=== PATIENT | female | born 1950 | race Caucasian/White ===

== ENCOUNTER 2020-03-12 07:19 | Outpatient (REF) | payer MEDICARE, SELFPAY ==
[2020-03-12 09:33] LABS: Alanine Aminotransferase 17 U/L (0-31); Albumin Level 4.1 g/dL (3.5-5.0); Alkaline Phosphatase 67 U/L (39-117); Anion Gap 15 (12-20); Aspartate Amino Transferase 21 U/L (5-31); Bilirubin Total 0.8 mg/dL (0.0-1.0); Blood Urea Nitrogen 14 mg/dL (9-16); Calcium 9.2 mg/dL (8.4-10.2); Carbon Dioxide 28 mmol/L (22-29); Chloride 103 mmol/L (96-108); Cholesterol 168 mg/dL; Estimated Glomerular Filt Rate > 60; Glucose Fasting 88 mg/dL (60-99); HDL Cholesterol 64 mg/dL; LDL Cholesterol Calculated 93 mg/dl; Potassium 5.5 mmol/l (3.3-5.1); Sodium 140 mmol/L (135-145); Total Protein 7.1 g/dL (6.5-8.0); Triglycerides 59 mg/dL
[2020-03-12 09:58] LABS: TSH reflex Free T4 3.05 mIU/mL (0.32-4.0)
== END 2020-03-12 07:20 | disposition home or self-care (01) ==
LOC: HO.LAB 07:19
PROVIDERS: PCP Internal Medicine; Visit Provider Internal Medicine
DX: E78.00 Pure hypercholesterolemia, unspecified (principal)
CPT/HCPCS: 36415; 80053; 80061; 84443

== ENCOUNTER 2020-10-15 07:16 | Outpatient (REF) | payer MEDICARE, SELFPAY ==
[2020-10-15 07:56] LABS: MANUAL DIFF FLAG NO
[2020-10-15 07:59] LABS: Basophils Absolute Auto 0.1 X10*3/uL (0.0-0.2); Basophils Percent Auto 0.9 % (0-2); Eosinophils Absolute Auto 0.2 X10*3/uL (0.0-0.4); Hematocrit 43.4 % (37-47); Hemoglobin 13.8 g/dl (12.0-16.0); Imm Gran Abs Auto 0.01 X10*3/uL (0.00-0.03); Imm Gran Pct Auto 0.2 % (0.0-0.4); Lymphocytes Absolute Auto 1.8 X10*3/uL (1.2-4.9); Lymphocytes Percent Auto 32.2 % (20-40); Mean Corpuscular HGB Conc 31.8 g/dl (31.0-35.0); Mean Corpuscular Hemoglobin 29.9 pg (27.0-33.0); Mean Corpuscular Volume 94.1 fL (80-98); Mean Platelet Volume 10.6 fL (9.4-12.3); Monocytes Absolute Auto 0.5 X10*3/uL (0.1-1.2); Monocytes Percent Auto 8.3 % (2-11); Neutrophils Absolute Auto 3.1 X10*3/uL (2.0-8.3); Neutrophils Percent Auto 55.4 % (45-73); Platelet Count 271 X10*3/uL (160-400); Red Blood Count 4.61 X10*6/uL (4.20-5.50); Red Cell Distribution Width 12.7 % (11.0-16.0); White Blood Count 5.7 X10*3/uL (4.8-10.8)
[2020-10-15 08:22] LABS: Alanine Aminotransferase 14 U/L (0-31); Albumin Level 4.1 g/dL (3.5-5.0); Alkaline Phosphatase 65 U/L (39-117); Anion Gap 10 (12-20); Aspartate Amino Transferase 18 U/L (5-31); Bilirubin Total 0.9 mg/dL (0.0-1.0); Blood Urea Nitrogen 14 mg/dL (9-16); Calcium 9.3 mg/dL (8.4-10.2); Carbon Dioxide 31 mmol/L (22-29); Chloride 105 mmol/L (96-108); Cholesterol 162 mg/dL; Estimated Glomerular Filt Rate > 60; Glucose Fasting 88 mg/dL (60-99); HDL Cholesterol 67 mg/dL; LDL Cholesterol Calculated 86 mg/dl; Potassium 4.1 mmol/L (3.3-5.1); Sodium 142 mmol/L (135-145); Triglycerides 46 mg/dL
[2020-10-15 08:46] LABS: TSH reflex Free T4 2.28 uIU/mL (0.32-4.0); Vitamin D 25-OH Total 45.6 ng/mL (>30)
[2020-10-15 10:03] LABS: Glucose Urine UA NEG (NEG); Leukocyte Esterase Urine 1+ (NEG); Nitrite Urine NEG (NEG); PH 6.5 (5.0-8.0); Specific Gravity - Urine <= 1.005 (1.005-1.025); UACC Culture Trigger YES; Urine Blood NEG (NEG); Urine Ketones NEG (NEG); Urine Protein NEG (NEG-TRACE)
[2020-10-15 10:06] LABS: Appearance Urine CLEAR; Color Urine YELLOW
[2020-10-15 10:50] LABS: RBC Urine 0 /HPF (0); Squamous Epithelial Cell Urine 1+ /LPF
== END 2020-10-15 07:17 | disposition home or self-care (01) ==
LOC: HO.LAB 07:16
PROVIDERS: PCP Internal Medicine; Visit Provider Internal Medicine
DX: E87.5 Hyperkalemia (principal); M81.0 Age-related osteoporosis without current pathological fracture; E78.00 Pure hypercholesterolemia, unspecified; R63.6 Underweight; E55.9 Vitamin D deficiency, unspecified
CPT/HCPCS: 36415; 80053; 80061; 81001; 81003; 82306; 84443; 85025; 87086

== ENCOUNTER 2020-10-22 07:09 | Outpatient (REF) | payer MEDICARE, SELFPAY ==
--- NOTE | ~2020-10-22 | XR_ITS ---
EXAMINATION: XR CERVICAL SPINE CLINICAL INFORMATION: Straightening of muscle, fascia and tendon COMPARISON: None TECHNIQUE: 3 views of the cervical spine were obtained. FINDINGS: There is normal cervical lordosis. The vertebral heights are normal. There is grade 1 anterolisthesis C3 over C4. Mild loss of C5-C6 disc height is noted with minimal posterior spondylosis. No visible acute fracture, dislocation or lytic process seen. The soft tissues are normal. XR/XR cervical spine 3V IMPRESSION: Degenerative disc changes C5-C6 disc level. No visible acute fracture or dislocation seen. Grade 1 anterolisthesis C3 over C4.
--- NOTE | ~2020-10-22 | XR_ITS ---
EXAMINATION: XR SHOULDER, LEFT CLINICAL INFORMATION: Strain COMPARISON: None TECHNIQUE: AP external rotation, Grashey, scapular Y, and axillary views of the left shoulder. FINDINGS: The bones and soft tissues are normal. No fracture. Glenohumeral and acromioclavicular alignment is anatomic with normal joint space. No abnormal soft tissue calcifications. XR/XR shoulder LT min 2V IMPRESSION: Normal left shoulder.
== END 2020-10-22 07:10 | disposition home or self-care (01) ==
LOC: HO.XRAY 07:09
PROVIDERS: PCP Internal Medicine; Visit Provider Internal Medicine
DX: M25.512 Pain in left shoulder (principal); M54.2 Cervicalgia; S16.1XXD Strain of muscle, fascia and tendon at neck level, subsequent encounter
CPT/HCPCS: 72040; 73030

== ENCOUNTER 2020-11-23 08:51 | Outpatient (REF) | payer MEDICARE, SELFPAY ==
--- NOTE | ~2020-11-23 | MM_ITS ---
EXAMINATION: BONE DENSITOMETRY CLINICAL INDICATION: Osteoporosis. COMPARISON: Previous BD dated 05/09/2017 and baseline BD dated 04/22/2015. TECHNIQUE: Using a [employer] DXA System (software version: 13.1) manufactured by [employer], dual-energy x-ray absorptiometry was performed of the lumbar spine and left hip. The images are of good technical quality. Summary results are attached. FINDINGS: AP SPINE L1-L4: Current: BMD 0.784 g/cm2, Z-score -1.1, T-score -3.3, osteoporosis, 0.5% increase from previous, 1.8% decrease from baseline (<5% change is not significant). Prior: BMD 0.780 g/cm2. Baseline: BMD 0.798 g/cm2. LEFT FEMUR, NECK: Current: BMD 0.629 g/cm2, Z-score -0.9, T-score -2.9, osteoporosis. Prior: BMD 0.614 g/cm2. Baseline: BMD 0.682 g/cm2. LEFT FEMUR, TOTAL: Current: BMD 0.617 g/cm2, Z-score -1.3, T-score -3.1, osteoporosis, 1.6% decrease from previous, 8.6% decrease from baseline (<5% change is not significant). Prior: BMD 0.627 g/cm2. Baseline: BMD 0.675 g/cm2. IDENTIFIED RISK FACTORS: Menopause, low body weight, height loss, osteoporosis. HISTORY OF FRACTURE: None listed. MEDICATIONS: Calcium, vitamin D, bisphosphonate. MM/XR DEXA axial skeleton IMPRESSION: 1. DIAGNOSIS: Osteoporosis based on the lowest T-score value of -3.3 in the lumbar spine applying World Health Organization criteria. 2. 10-YEAR FRACTURE RISK PREDICTION, FRAX: Major osteoporotic fracture (clinical spine, forearm, hip or shoulder) 15.2%. Hip fracture 5.1%. 3. Treatment Recommendations: NOF guidelines recommend consideration for treatment in postmenopausal women and men age 50 and older presenting with the following: -A hip or vertebral (clinical or morphometric) fracture. -T-score less than or equal to -2.5 at the femoral neck or spine after appropriate evaluation to exclude secondary causes. -Low bone mass at the hip or spine and a 10-year fracture probability by FRAX of greater than or equal to 3% for hip fracture or greater than or equal to 20% for major osteoporotic fracture based on the [place] adapted WHO algorithm. 4. Other Recommendations: All treatment decisions require clinical judgment and consideration of individual patient factors, including patient preferences, comorbidities, previous drug use, risk factors not captured in the FRAX model (e.g. frailty, falls, vitamin D deficiency, increased bone turnover, interval significant decline in bone density) and possible under or overestimation of fracture risk by FRAX. Additional medical evaluation for secondary cause of low bone mineral density may be appropriate. FUTURE SCAN RECOMMENDATION: People with diagnosed cases of osteoporosis or at high risk for fracture should have regular bone mineral density tests. For patients eligible for Medicare, routine testing is allowed once every 2 years. The testing frequency can be increased to one year for patients who have rapidly progressing disease, those who are receiving or discontinuing medical therapy to restore bone mass, or have additional risk factors.
== END 2020-11-23 08:52 | disposition home or self-care (01) ==
LOC: HO.MAMMO 08:51
PROVIDERS: Visit Provider Internal Medicine
DX: M81.0 Age-related osteoporosis without current pathological fracture (principal); Z78.0 Asymptomatic menopausal state
CPT/HCPCS: 77080

== ENCOUNTER 2021-04-15 07:29 | Outpatient (REF) | payer MEDICARE, SELFPAY ==
[2021-04-15 07:37] LABS: MANUAL DIFF FLAG NO
[2021-04-15 08:41] LABS: Basophils Percent Auto 0.6 % (0-2); Eosinophils Absolute Auto 0.2 X10*3/uL (0.0-0.4); Eosinophils Percent Auto 3.3 % (0-4); Hematocrit 43.5 % (37.0-47.0); Hemoglobin 13.8 g/dl (12.0-16.0); Imm Gran Abs Auto 0.01 X10*3/uL (0.00-0.03); Imm Gran Pct Auto 0.2 % (0.0-0.4); Lymphocytes Percent Auto 31.6 % (20-40); Mean Corpuscular HGB Conc 31.7 g/dl (31.0-35.0); Mean Corpuscular Volume 94.6 fL (80.0-98.0); Monocytes Absolute Auto 0.6 X10*3/uL (0.1-1.2); Monocytes Percent Auto 8.8 % (2-11); Neutrophils Absolute Auto 3.5 x10*3/uL (2.0-8.3); Neutrophils Percent Auto 55.5 % (45-73); Platelet Count 292 X10*3/uL (160-400); Red Cell Distribution Width 12.6 % (11.0-16.0); White Blood Count 6.4 X10*3/uL (4.8-10.8)
[2021-04-15 09:03] LABS: Alanine Aminotransferase 14 U/L (0-31); Albumin Level 3.9 g/dL (3.5-5.0); Alkaline Phosphatase 64 U/L (39-117); Anion Gap 11 (12-20); Aspartate Amino Transferase 20 U/L (5-31); Blood Urea Nitrogen 15 mg/dL (9-16); Calcium 9.3 mg/dL (8.4-10.2); Carbon Dioxide 30 mmol/L (22-29); Chloride 104 mmol/L (96-108); Cholesterol 159 mg/dL; Estimated Glomerular Filt Rate > 60; Glucose Fasting 84 mg/dL (60-99); HDL Cholesterol 64 mg/dL; LDL Cholesterol Calculated 85 mg/dl; Potassium 4.3 mmol/L (3.3-5.1); Sodium 141 mmol/L (135-145); Total Protein 6.8 g/dL (6.5-8.0); Triglycerides 51 mg/dL
[2021-04-15 09:28] LABS: TSH reflex Free T4 2.21 uIU/mL (0.32-4.0)
== END 2021-04-15 07:30 | disposition home or self-care (01) ==
LOC: HO.LAB 07:29
PROVIDERS: PCP Internal Medicine; Visit Provider Internal Medicine
DX: E78.00 Pure hypercholesterolemia, unspecified (principal); I10 Essential (primary) hypertension
CPT/HCPCS: 36415; 80053; 80061; 84443; 85025

== ENCOUNTER 2021-10-14 06:57 | Outpatient (REF) | payer MEDICARE, SELFPAY ==
[2021-10-14 09:19] LABS: Appearance Urine Clear; Color Urine Yellow; Glucose Urine UA Negative (Negative); Leukocyte Esterase Urine Moderate (2+) (Negative); Nitrite Urine Negative (Negative); PH 7.5 (5.0-8.0); Specific Gravity - Urine 1.015 (1.005-1.025); Urine Blood Negative (Negative); Urine Ketones Negative (Negative); Urine Protein Negative (Neg-Trace)
[2021-10-14 09:24] LABS: Bacteria Urine None Seen (None Seen); Hyaline Casts Urine 0-2 /LPF (0-2); RBC Urine 0-2 /HPF (0-2); Squamous Epithelial Cell Urine 0-2 /HPF (0-2); UACC Culture Trigger YES
== END 2021-10-14 06:58 | disposition home or self-care (01) ==
LOC: HO.LAB 06:57
PROVIDERS: PCP Internal Medicine; Visit Provider Internal Medicine
DX: E87.5 Hyperkalemia (principal)
CPT/HCPCS: 81001; 87086

== ENCOUNTER 2021-10-21 07:08 | Outpatient (REF) | payer MEDICARE, SELFPAY ==
[2021-10-21 08:42] LABS: Anion Gap 14 (12-20); Blood Urea Nitrogen 17 mg/dL (9-16); Calcium 9.3 mg/dL (8.4-10.2); Carbon Dioxide 29 mmol/L (22-29); Chloride 103 mmol/L (96-108); Cholesterol 178 mg/dL; Estimated Glomerular Filt Rate > 60; Glucose Fasting 85 mg/dL (60-99); HDL Cholesterol 70 mg/dL; LDL Cholesterol Calculated 97 mg/dl; Potassium 4.6 mmol/L (3.3-5.1); Sodium 141 mmol/L (135-145); Triglycerides 56 mg/dL
== END 2021-10-21 07:09 | disposition home or self-care (01) ==
LOC: HO.LAB 07:08
PROVIDERS: PCP Internal Medicine; Visit Provider Nurse Practitioner Family
DX: E78.00 Pure hypercholesterolemia, unspecified (principal); Z13.1 Encounter for screening for diabetes mellitus
CPT/HCPCS: 36415; 80048; 80061

== ENCOUNTER 2022-04-28 07:14 | Outpatient (REF) | payer MEDICARE, SELFPAY ==
[2022-04-28 07:32] LABS: MANUAL DIFF FLAG NO
[2022-04-28 07:58] LABS: Basophils Absolute Auto 0.1 X10*3/uL (0.0-0.2); Basophils Percent Auto 1.1 % (0-2); Eosinophils Absolute Auto 0.2 X10*3/uL (0.0-0.4); Hemoglobin 13.9 g/dl (12.0-16.0); Imm Gran Abs Auto 0.01 X10*3/uL (0.00-0.03); Imm Gran Pct Auto 0.2 % (0.0-0.4); Lymphocytes Absolute Auto 2.3 X10*3/uL (1.2-4.9); Mean Corpuscular HGB Conc 32.3 g/dl (31.0-35.0); Mean Corpuscular Hemoglobin 30.3 pg (27.0-33.0); Mean Corpuscular Volume 93.9 fL (80.0-98.0); Mean Platelet Volume 10.8 fL (9.4-12.3); Monocytes Absolute Auto 0.5 X10*3/uL (0.1-1.2); Monocytes Percent Auto 7.8 % (2-11); Neutrophils Absolute Auto 3.4 x10*3/uL (2.0-8.3); Neutrophils Percent Auto 52.9 % (45-73); Platelet Count 274 X10*3/uL (160-400); Red Blood Count 4.58 X10*6/uL (4.20-5.50); Red Cell Distribution Width 12.7 % (11.0-16.0); White Blood Count 6.4 X10*3/uL (4.8-10.8)
[2022-04-28 08:18] LABS: Appearance Urine Cloudy; Color Urine Yellow; Glucose Urine UA Negative (Negative); Leukocyte Esterase Urine Moderate (2+) (Negative); Nitrite Urine Negative (Negative); PH 8.5 (5.0-9.0); Specific Gravity - Urine 1.015 (1.005-1.025); UMIC TRIGGER UACC YES; Urine Blood Negative (Negative); Urine Ketones Negative (Negative); Urine Protein Negative (Neg-Trace)
[2022-04-28 08:34] LABS: Bacteria Urine None Seen (None Seen); Hyaline Casts Urine 0-2 /LPF (0-2); RBC Urine 0-2 /HPF (0-2); Squamous Epithelial Cell Urine 0-2 /HPF (0-2); WBC Urine 0-5 /HPF (0-5)
[2022-04-28 08:55] LABS: Alanine Aminotransferase 17 U/L (0-31); Albumin Level 3.9 g/dL (3.5-5.0); Alkaline Phosphatase 72 U/L (39-117); Anion Gap 11 (12-20); Aspartate Amino Transferase 22 U/L (5-31); Bilirubin Total 0.8 mg/dL (0.0-1.0); Blood Urea Nitrogen 16 mg/dL (9-16); Calcium 8.9 mg/dL (8.4-10.2); Carbon Dioxide 28 mmol/L (22-29); Chloride 105 mmol/L (96-108); Cholesterol 167 mg/dL; Estimated Glomerular Filt Rate > 60; Glucose Fasting 86 mg/dL (60-99); HDL Cholesterol 65 mg/dL; LDL Cholesterol Calculated 93 mg/dl; Potassium 4.3 mmol/L (3.3-5.1); Sodium 140 mmol/L (135-145); Total Protein 6.6 g/dL (6.5-8.0); Triglycerides 45 mg/dL
[2022-04-28 09:15] LABS: TSH reflex Free T4 2.33 uIU/mL (0.32-4.0)
[2022-04-28 09:58] LABS: Vitamin D 25-OH Total 39.8 ng/mL (>30)
== END 2022-04-28 07:15 | disposition home or self-care (01) ==
LOC: HO.LAB 07:14
PROVIDERS: PCP Internal Medicine; Visit Provider Internal Medicine
DX: M81.0 Age-related osteoporosis without current pathological fracture (principal); E55.9 Vitamin D deficiency, unspecified; E78.00 Pure hypercholesterolemia, unspecified
CPT/HCPCS: 36415; 80053; 80061; 81001; 82306; 84443; 85025

== ENCOUNTER 2022-12-01 07:12 | Outpatient (REF) | payer MEDICARE, SELFPAY ==
[2022-12-01 07:55] LABS: MANUAL DIFF FLAG NO
[2022-12-01 07:59] LABS: Basophils Absolute Auto 0.1 X10*3/uL (0.0-0.2); Basophils Percent Auto 0.7 % (0-2); Eosinophils Absolute Auto 0.2 X10*3/uL (0.0-0.4); Eosinophils Percent Auto 2.6 % (0-4); Hematocrit 44.6 % (37.0-47.0); Hemoglobin 14.6 g/dl (12.0-16.0); Imm Gran Abs Auto 0.02 X10*3/uL (0.00-0.03); Imm Gran Pct Auto 0.3 % (0.0-0.4); Lymphocytes Absolute Auto 2.1 X10*3/uL (1.2-4.9); Lymphocytes Percent Auto 29.6 % (20-40); Mean Corpuscular HGB Conc 32.7 g/dl (31.0-35.0); Mean Corpuscular Hemoglobin 30.5 pg (27.0-33.0); Mean Corpuscular Volume 93.3 fL (80.0-98.0); Mean Platelet Volume 9.9 fL (9.4-12.3); Monocytes Absolute Auto 0.6 X10*3/uL (0.1-1.2); Monocytes Percent Auto 9.1 % (2-11); Neutrophils Percent Auto 57.7 % (45-73); Platelet Count 319 X10*3/uL (160-400); Red Blood Count 4.78 X10*6/uL (4.20-5.50); Red Cell Distribution Width 12.7 % (11.0-16.0)
[2022-12-01 08:46] LABS: Alanine Aminotransferase 16 U/L (0-31); Alkaline Phosphatase 86 U/L (39-117); Anion Gap 14 (12-20); Aspartate Amino Transferase 20 U/L (5-31); Bilirubin Total 0.7 mg/dL (0.0-1.0); Blood Urea Nitrogen 12 mg/dL (9-16); Calcium 9.9 mg/dL (8.4-10.2); Carbon Dioxide 28 mmol/L (22-29); Chloride 106 mmol/L (96-108); Cholesterol 174 mg/dL (<200); Estimated Glomerular Filt Rate > 60; Glucose Fasting 89 mg/dL (60-99); HDL Cholesterol 64 mg/dL (>40); LDL Cholesterol Calculated 98 mg/dL (<100); Potassium 5.5 mmol/L (3.3-5.1); Sodium 142 mmol/L (135-145); Total Protein 7.5 g/dL (6.5-8.0); Triglycerides 60 mg/dL (<150)
[2022-12-01 09:01] LABS: TSH reflex Free T4 1.77 uIU/mL (0.32-4.0); Vitamin D 25-OH Total 60.6 ng/mL (>30)
[2022-12-01 10:23] LABS: Appearance Urine Clear; Color Urine Yellow; Glucose Urine UA Negative (Negative); Leukocyte Esterase Urine Small (1+) (Negative); Nitrite Urine Negative (Negative); PH 6.5 (5.0-9.0); Specific Gravity - Urine 1.015 (1.005-1.025); UMIC TRIGGER UACC YES; Urine Blood Negative (Negative); Urine Ketones Negative (Negative); Urine Protein Negative (Neg-Trace)
[2022-12-01 10:40] LABS: Bacteria Urine None Seen (None Seen); Hyaline Casts Urine 0-2 /LPF (0-2); RBC Urine 0-2 /HPF (0-2); Squamous Epithelial Cell Urine 0-2 /HPF (0-2); UACC Culture Trigger YES; WBC Urine 0-5 /HPF (0-5)
[2022-12-03 23:07] LABS: Lyme Abs Screen <0.90 index
== END 2022-12-01 07:13 | disposition home or self-care (01) ==
LOC: HO.LAB 07:12
PROVIDERS: PCP Internal Medicine; Visit Provider Internal Medicine
DX: M25.50 Pain in unspecified joint (principal); I10 Essential (primary) hypertension; E55.9 Vitamin D deficiency, unspecified; E78.00 Pure hypercholesterolemia, unspecified; R30.0 Dysuria
CPT/HCPCS: 36415; 80053; 80061; 81001; 81003; 82306; 84443; 85025; 86617; 86618; 87086

== ENCOUNTER 2022-12-05 10:56 | Outpatient (AMB) | payer MEDICARE, SELFPAY ==
[2022-12-05 10:58] VITALS: BP 124/68; PULSE 59; O2SAT 99; BMI 18.2
--- NOTE | 2022-12-05 10:58 | AM.OFFVISMDC ---
Intake Vital Signs 12/05/22 10:58 Height 5 ft 6 in Weight 113 lb 0.2 oz BMI 18.2 BP 124/68 Blood Pressure Location Lt brachial Position Sitting Pulse 59 Pulse Source Pulse Oximeter Temp Source Skin Pulse Oximetry (%) 99 Oxygen Delivery Method Room Air Intake Visit Reasons: SAWV Allergies No Known Allergies [No Known Allergies*] Allergy (Verified 12/05/22 11:20) Medication List - Last Reconciled 12/05/22 by LASHON Harris alendronate 70 mg PO QWEEK 90 days atorvastatin 10 mg PO DAILY zolpidem 5 mg PO BEDTIME PRN 90 days Fall Risk Assessment Fall risk assessment: No Falls in past year Date Fall Risk Assessed: 12/05/22 HPI SAWV HPI Details Patient is a 72-year-old female who presents today for subsequent wellness visit. Patient of Dr. Boudreaux. Today we discussed patient's need for pneumonia vaccine, tetanus vaccine, and bone density screening. Patient has declined pneumonia and tetanus vaccines. Mammogram normal 01/2022. Patient did have normal Pap smear 10/2020 at [facility] and she has an upcoming appointment with gynecology next week. Colonoscopy in 2019 which was negative and repeat in [address] Marin. [place] of care was reviewed with the patient and she was provided with a screening schedule. End of life planning was discussed with the patient and she was provided with healthcare proxy and MOLST forms. [facility] Medical History Cervical myofascial strain Underweight Hyperkalemia Insomnia Osteoporosis Pure hypercholesterolemia Surgical History History of colonoscopy Family History Father Medical history unknown Mother Medical history unknown Son In good health Son In good health Social History Housing: House Alcohol intake: never Patient Tobacco Use Status: Never used Tobacco e-Cigarette/Vaping Use: Never Used Second Hand Smoke Exposure: No service: No Current occupational status: retired Cognitive needs: No Hearing needs: No Vision needs: Yes Questionnaire Medicare Wellness Checkup What [age] 65-71 What gender do you identify with?: female During the past 4 weeks, how much have you been bothered by emotional problems such as feeling anxious, depressed, irritable, sad or downhearted, and blue?: not at all During the past 4 weeks, has your physical & emotional health limited your social activities with family, friends, neighbors, or groups?: not at all During the past 4 weeks, how much bodily pain have you generally had?: mild pain During the past 4 weeks, was someone available to help you if you needed & wanted help?: yes, as much as I wanted During the past 4 weeks, what was the hardest physical activity you could do for at least 2 minutes?: moderate Can you get to places out of walking distance without help? (For eg., can you travel alone on buses, taxis or drive your car?): Yes Can you go shopping for groceries or clothes without someone's help?: Yes Can you prepare your own meals?: Yes Can you do your housework without help?: Yes Because of any health problems, do you need the help of another person with your personal care needs such as eating, bathing, dressing or getting around the house?: No Can you handle your own money without help?: No During the past 4 weeks, how would you rate your health in general?: very good During the past 4 weeks how have things been going for you?: pretty well Are you having difficulties driving your car?: no Do you always fasten your seat belt when you are in a car?: yes, usually During past 4 weeks, have you been bothered by the following: never: Falling or dizzy when standing up, Sexual problems?, Trouble eating well?, Teeth or denture problems? and Problems using the telephone? and sometimes: Tiredness or fatigue? Have you fallen 2 or more times in the past year?: No Are you afraid of falling?: No Are you a smoker?: no During the past 4 weeks, how many drinks of wine, beer, or other alcoholic beverages did you have?: no alcohol at all Do you exercise for about 20 minutes 3 or more times a week?: no, I usually do not exercise this much Have you been given information to help with the following?: no: Hazards in your house that might hurt you? and no: Keeping track of your medications? How often do you have trouble taking medicines the way you have been told to take them?: I always take medicine as prescribed How confident are you that you can control & manage most of your health problems?: very confident What is your race?: White Mini Mental State Exam (MMSE) Orientation What is the (year) (season) (date) (day) (month)?: year, season, date, day and month Score Score: 5 Activity of Daily Living Bathing - sponge bath, tub bath or shower: receives no assistance (gets in/out by self, if usual bathing means Dressing - getting clothes from closets & drawers, including inner/outer garments & fasteners.: gets clothes & gets completely dressed without help Toileting - going to the 'toilet room' for urine/bowel elimination & cleaning self/arranging clothes: goes to toilet room, cleans self, arranges clothes without help Transfer: moves in & out of bed and chair without help (may use support object) Continence: controls urination/bowel movements completely by self Feeding: feeds self without help Total Score: 0 Information obtained from: patient Using telephone: independent Traveling: independent Shopping: independent Preparing meals: independent Housework: independent Taking medicine: independent Managing money: independent PHQ-9 Over the last 2 weeks, how often have you been bothered by any of the following problems? 1. Little interest or pleasure in doing things: not at all 2. Feeling down, depressed, or hopeless: not at all 3. Trouble falling or staying asleep, or sleeping too much: several days 4. Feeling tired or having little energy: several days 5. Poor appetite or overeating: not at all 6. Feeling bad about yourself - or that you are a failure or have let yourself or your family down: not at all 7. Trouble concentrating on things, such as reading the newspaper or watching television: not at all 8. Moving or speaking so slowly that other people could have noticed. Or the opposite - being so fidgety or restless that you have been moving around a lot more than usual: not at all 9. Thoughts that you would be better off or of hurting yourself in some way: not at all Total score: 2 Depression Screening Interpretation: Negative Depression Screening Done: Yes 05739 - PHQ-9 Billing: Yes Source: Developed by Drs. Daniel Botello, Wade Bermudez and colleagues, with an educational delvin from [employer]. ANTON-7 AMB Questionnaire ANTON-7 Date ANTON - 7 assessed: 04/30/22 Feeling nervous, anxious, or on edge: 0 = Not at all Not being able to stop or control worryin = Not at all Worrying too much about different things: 0 = Not at all Trouble relaxin = Not at all Being so restless that it is hard to sit still: 0 = Not at all Becoming easily annoyed or irritable: 0 = Not at all Feeling afraid as if something awful might happen: 0 = Not at all Total ANTON-7 score (0-4 normal; 5-9 mild; 10-14 moderate; 15-21 severe): 0 Source: Developed by Drs. Daniel Btoello, Wade Bermudez and colleagues, with an educational delvin from [employer]. ANTON-7 Assessment Billing ANTON-7 Assessment Tool: ANTON-7 Assessment 52085 AUDIT C Alcohol Use Questionnaire (AUDIT-C) 1. How often do you have a drink containing alcohol?: Never 3. How often do you have six or more drinks on one occasion?: Never Total Score: 0 Score Reviewed/Action Taken: No Thrive Questionnaire Date Thrive assessed: 12/05/22 I am a: Patient What is your living situation today?: I have a steady place to live Within the past 12 months, did the food you bought not last and you didn't have the money to get more?: Never true Within the past 12 months, did you worry whether your food would run out before you got money to buy more?: Never true Currently or been in a relationship where the following occur: no concerns reported Physical Exam Vital Signs: Last Vital Signs Pulse 59 12/05/22 10:58 BP 124/68 12/05/22 10:58 Pulse Ox 99 12/05/22 10:58 Oxygen Delivery Method Room Air 12/05/22 10:58 BMI result Body Mass Index 18.2 Const General: cooperative and no acute distress Orientation/consciousness: patient oriented x3 HEENT Other: Whisper test: pass Neuro Other: Balance: Normal Get up and walk: able to Romberg: negative Tandem gait: unable to General: patient oriented x3 Office Procedures Flu Questionnaire Does the patient have a severe egg allergy?: No Does the patient have severe life threatening allergies?: No Does the patient have a fever or illness today?: No Has the patient ever had Guillain-[place] Syndrome?: No Has the patient ever had any past reaction to a flu shot?: No Immunizations flu vacc [id number] 6mos up(PF) 60 mcg(15 mcgx4)/0.5 mL IM syringe Performing Provider: LASHON Harris Performing Location: [facility] Administered by: RODY Nina on 12/05/22 11:16 Dose Route Admin Location Dispensed Lot Number Expiration Date [employer] 0.5 mL IM Left Deltoid 0.5 mL [id number] 08/18/23 02223-354-25 [employer] VIS Given Date VIS Provided VIS Publication Date 12/05/22 Single Vaccine 20 Eligibility Eligibility Date Funding Source Not [facility] Eligible 12/05/22 Private Assessment & Plan Assessment & Plan (1) Encounter for Medicare annual wellness exam: Code(s): Z00.00 - Encounter for general adult medical examination without abnormal findings (2) Underweight: Code(s): R63.6 - Underweight Plan: Continue to monitor (3) Hyperkalemia: Code(s): E87.5 - Hyperkalemia Plan: Potassium 5.5 12/01/2022 Recheck potassium Patient reports not consuming foods or fluids with high potassium (4) Insomnia: Code(s): G47.00 - Insomnia, unspecified Qualifiers: Insomnia type: unspecified Qualified Code(s): G47.00 - Insomnia, unspecified Plan: Reinforced sleep hygiene Continue zolpidem 5 mg at bedtime p.r.n. (5) Osteoporosis: Code(s): M81.0 - Age-related osteoporosis without current pathological fracture Qualifiers: Osteoporosis type: age-related Presence of current pathological fracture: without current pathological fracture Qualified Code(s): M81.0 - Age-related osteoporosis without current pathological fracture Plan: Bone density screen 11/2020 which showed osteoporosis Continue alendronate 70 mg weekly - patient reports that she is on Fosamax for the past some time, she does not remember when this was started, reports Fosamax what stopped 08/2012 and then again restarted in couple years. Will repeat bone density screening (6) Pure hypercholesterolemia: Code(s): E78.00 - Pure hypercholesterolemia, unspecified Plan: Continue current treatment Low-cholesterol diet Orders: Orders Basic Metabolic Panel Today E87.5 - Hyperkalemia Influenza [id number] Immunization Today Z23 - Encounter for immunization XR DEXA axial skeleton Today M81.0 - Age-related osteoporosis without current pathological fracture Quality Reporting (2019) Fall Risk Screening ([facility] 139) Last assessed Fall Risk: 12/05/22 Fall risk assessment: No Falls in past year Depression/Bipolar (159/160/161/177) PHQ-9: Total score: 2 Coding Level of Care Code Medicare Subsequent (G0439) Diagnoses Encounter for Medicare annual wellness exam Z00.00 Underweight R63.6 Hyperkalemia E87.5 Insomnia, unspecified type G47.00 Insomnia type: unspecified Age-related osteoporosis without current pathological fracture M81.0 Osteoporosis type: age-related Presence of current pathological fracture: without current pathological fracture Pure hypercholesterolemia E78.00 CPT Codes Advance Care Planning - Time spent: 1-15 minutes, not on file ([id number]) Additional Codes ANTON-7 Assessment Billing - ANTON-7 Assessment Tool: ANTON-7 Assessment 82136 ([id number]) Advance Care Planning Date of discussion: 12/05/22 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
== END 2022-12-05 11:41 | disposition home or self-care (01) ==
PROVIDERS: PCP Internal Medicine; Visit Provider Nurse Practitioner Family
DX: Z00.00 Encounter for general adult medical examination without abnormal findings (principal); R63.6 Underweight; E87.5 Hyperkalemia; G47.00 Insomnia, unspecified; Z23 Encounter for immunization; M81.0 Age-related osteoporosis without current pathological fracture; E78.00 Pure hypercholesterolemia, unspecified
CPT/HCPCS: 1124F; 90471; 90686; G0439

== ENCOUNTER 2022-12-15 07:04 | Outpatient (REF) | payer MEDICARE, SELFPAY ==
[2022-12-15 08:05] LABS: Anion Gap 13 (12-20); Blood Urea Nitrogen 12 mg/dL (9-16); Calcium 9.2 mg/dL (8.4-10.2); Carbon Dioxide 28 mmol/L (22-29); Chloride 104 mmol/L (96-108); Estimated Glomerular Filt Rate > 60; Glucose Random 86 mg/dL (60-115); Potassium 3.8 mmol/L (3.3-5.1); Sodium 141 mmol/L (135-145)
[2022-12-15 08:46] LABS: Appearance Urine Clear; Color Urine Yellow; Glucose Urine UA Negative (Negative); Leukocyte Esterase Urine Moderate (2+) (Negative); Nitrite Urine Negative (Negative); PH 7.5 (5.0-9.0); Specific Gravity - Urine 1.015 (1.005-1.025); UMIC TRIGGER UACC YES; Urine Blood Negative (Negative); Urine Ketones Negative (Negative); Urine Protein Negative (Neg-Trace)
[2022-12-15 08:56] LABS: Bacteria Urine None Seen (None Seen); Hyaline Casts Urine 0-2 /LPF (0-2); RBC Urine 0-2 /HPF (0-2); Squamous Epithelial Cell Urine 0-2 /HPF (0-2); WBC Urine 0-5 /HPF (0-5)
== END 2022-12-15 07:05 | disposition home or self-care (01) ==
LOC: HO.LAB 07:04
PROVIDERS: PCP Internal Medicine; Visit Provider Nurse Practitioner Family
DX: E87.5 Hyperkalemia (principal)
CPT/HCPCS: 36415; 80048; 81001

== ENCOUNTER 2022-12-26 08:27 | Outpatient (REF) | payer MEDICARE, SELFPAY ==
--- NOTE | ~2022-12-26 | MM_ITS ---
EXAMINATION: BONE DENSITOMETRY CLINICAL INDICATION: Age-related osteoporosis without current pathological fracture. COMPARISON: Previous BD dated 11/23/2020 and baseline BD dated 04/22/2015. TECHNIQUE: Using a [employer] DXA System (software version: 13.1) manufactured by [employer], dual-energy x-ray absorptiometry was performed of the lumbar spine and left hip. The images are of good technical quality. Summary results are attached. FINDINGS: LEFT FEMUR, NECK: Current: BMD 0.632 g/cm2, Z-score -0.9, T-score -2.9, osteoporosis. Prior: BMD 0.629 g/cm2. Baseline: BMD 0.682 g/cm2. LEFT FEMUR, TOTAL: Current: BMD 0.592 g/cm2, Z-score -1.5, T-score -3.3, osteoporosis, 4.1% decrease from previous, 12.3% decrease from baseline (<5% change is not significant). Prior: BMD 0.617 g/cm2. Baseline: BMD 0.675 g/cm2. AP SPINE L1-L4: Current: BMD 0.799 g/cm2, Z-score -1.0, T-score -3.2, osteoporosis, 1.9% increase from previous, 0.1% increase from baseline (<5% change is not significant). Prior: BMD 0.784 g/cm2. Baseline: BMD 0.798 g/cm2. IDENTIFIED RISK FACTORS: Menopause, height loss, osteoporosis. HISTORY OF FRACTURE: None listed. MEDICATIONS: Calcium supplements or multivitamin, vitamin D, bisphosphonate. MM/XR DEXA axial skeleton IMPRESSION: 1. DIAGNOSIS: Osteoporosis based on the lowest T-score value of -3.3 in the total femur applying World Health Organization criteria. 2. 10-YEAR FRACTURE RISK PREDICTION, FRAX: According to the guidelines, FRAX calculation should only be performed on patients in the osteopenia bone density category. Therefore, FRAX was not performed on this patient. 3. Treatment Recommendations: NOF guidelines recommend consideration for treatment in postmenopausal women and men age 50 and older presenting with the following: -A hip or vertebral (clinical or morphometric) fracture. -T-score less than or equal to -2.5 at the femoral neck or spine after appropriate evaluation to exclude secondary causes. -Low bone mass at the hip or spine and a 10-year fracture probability by FRAX of greater than or equal to 3% for hip fracture or greater than or equal to 20% for major osteoporotic fracture based on the [place] adapted WHO algorithm. 4. Other Recommendations: All treatment decisions require clinical judgment and consideration of individual patient factors, including patient preferences, comorbidities, previous drug use, risk factors not captured in the FRAX model (e.g. frailty, falls, vitamin D deficiency, increased bone turnover, interval significant decline in bone density) and possible under or overestimation of fracture risk by FRAX. Additional medical evaluation for secondary cause of low bone mineral density may be appropriate. FUTURE SCAN RECOMMENDATION: People with diagnosed cases of osteoporosis or at high risk for fracture should have regular bone mineral density tests. For patients eligible for Medicare, routine testing is allowed once every 2 years. The testing frequency can be increased to one year for patients who have rapidly progressing disease, those who are receiving or discontinuing medical therapy to restore bone mass, or have additional risk factors.
== END 2022-12-26 08:28 | disposition home or self-care (01) ==
LOC: HO.MAMMO 08:27
PROVIDERS: PCP Internal Medicine; Visit Provider Nurse Practitioner Family
DX: Z13.820 Encounter for screening for osteoporosis (principal); Z78.0 Asymptomatic menopausal state; M81.0 Age-related osteoporosis without current pathological fracture
CPT/HCPCS: 77080

== ENCOUNTER 2023-06-11 09:55 | Outpatient (AMB) | payer MEDICARE, SELFPAY ==
[2023-06-11 09:58] VITALS: BP 114/64; PULSE 65; O2SAT 100; BMI 18.4
--- NOTE | 2023-06-11 09:58 | MHC.PC.OV ---
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 Tender: Not Required per policy Accompanied by: Self / Same As Patient Allergies No Known Allergies [No Known Allergies*] Allergy (Verified 06/11/23 10:38) Medication List - Last Reconciled 06/11/23 by Gareth Boudreaux MD alendronate 70 mg PO QWEEK 90 days atorvastatin 10 mg PO DAILY zolpidem 5 mg PO BEDTIME PRN 90 days Tobacco use date assessed: 06/11/23 Fall risk assessment: No Falls in past year Last assessed Fall Risk: 06/11/23 Dental Screening Dental Screen Date: 06/11/23 Did you have a dental visit in the last 12 months?: Yes Did you have a dental problem in the last 6 months where you did not have access to dental care?: No Was dental information given to patient?: Patient has dentist HPI HLD HPI Details Patient comes in today for her follow up visit States that she currently feels okay Recalls that she was experiencing some right ear pain and discomfort as well as some right-sided throat pain for a while back in early February 2023 States that she was considering going to urgent care to have her symptoms checked out but they gradually subsided after a few days and she ended up not going although she continues to experience some on and off right sided throat discomfort when she is swallowing up until now She denies any sore throat; denies any fever or any difficulty swallowing She denies any headaches or dizziness Denies any chest pains, no SOB No nausea/vomiting, no abdominal pain No change in bowel habits noted Did not have any follow up labs done as she states that there was no order for labs when she went there a few days ago - she was last seen by Dali Bravo last fall for her wellness exam and no follow up labs were ordered then [facility] Medical History Cervical myofascial strain Underweight Hyperkalemia Insomnia Osteoporosis Pure hypercholesterolemia Surgical History History of colonoscopy Family History Father Medical history unknown Mother Medical history unknown Son In good health Son In good health Social History Housing: House Alcohol intake: never Patient Tobacco Use Status: Never used Tobacco e-Cigarette/Vaping Use: Never Used Second Hand Smoke Exposure: No service: No Current occupational status: retired Cognitive needs: No Hearing needs: No Vision needs: Yes Questionnaire PHQ-9 Over the last 2 weeks, how often have you been bothered by any of the following problems? 1. Little interest or pleasure in doing things: not at all 2. Feeling down, depressed, or hopeless: not at all 3. Trouble falling or staying asleep, or sleeping too much: not at all 4. Feeling tired or having little energy: not at all 5. Poor appetite or overeating: not at all 6. Feeling bad about yourself - or that you are a failure or have let yourself or your family down: not at all 7. Trouble concentrating on things, such as reading the newspaper or watching television: not at all 8. Moving or speaking so slowly that other people could have noticed. Or the opposite - being so fidgety or restless that you have been moving around a lot more than usual: not at all 9. Thoughts that you would be better off or of hurting yourself in some way: not at all Total score: 0 Depression Screening Interpretation: Negative Depression Screening Done: Yes 10616 - PHQ-9 Billing: Yes Source: Developed by Drs. Daniel Botello, Shayy Foley, Wade Adorno and colleagues, with an educational delvin from [employer]. Thrive Questionnaire Date Thrive assessed: 06/11/23 I am a: Patient What is your living situation today?: I have a steady place to live Within the past 12 months, did the food you bought not last and you didn't have the money to get more?: Never true Within the past 12 months, did you worry whether your food would run out before you got money to buy more?: Never true Do you have trouble paying for medicines?: No Do you have trouble getting transportation to medical appointments?: No Do you have trouble paying your heating and electricity bill?: No Do you have trouble taking care of your child, family member or friend?: No Do you have trouble with day-to-day activities such as bathing, preparing meals, shopping, managing finances, etc.?: No Are you currently unemployed and looking for a job?: No Are you interested in more education?: No Please select the resources that you would like help with: None Currently or been in a relationship where the following occur: no concerns reported THRIVE Score: 0 AUDIT C Alcohol Use Questionnaire (AUDIT-C) 1. How often do you have a drink containing alcohol?: Never 3. How often do you have six or more drinks on one occasion?: Never Total Score: 0 Score Reviewed/Action Taken: Yes ANTON-7 AMB Questionnaire ANTON-7 Date ANTON - 7 assessed: 06/11/23 Source: Developed by Drs. Daniel Botello, Shayy Foley, Wade Adorno and colleagues, with an educational delvin from [employer]. Review of Systems Const Denies fatigue, Denies fever(s) and Denies headache(s) ENT Reports as per HPI, Denies dysphagia (but reports on and off right-sided throat discomfort when swallowing), Denies dizziness, Denies otalgia, Denies headache(s), Denies neck pain, Denies odynophagia and Denies sore throat Card Denies chest pain, Denies palpitations and Denies dyspnea Resp Denies cough and Denies dyspnea GI Denies abdominal pain, Denies constipation, Denies dysphagia (but reports on and off right-sided throat discomfort when swallowing), Denies heartburn, Denies diarrhea, Denies nausea, Denies odynophagia and Denies vomiting Denies difficulty voiding, Denies nocturia, Denies dysuria and Denies urinary urgency Musc Reports myalgias (occasional), Reports arthralgias and Denies neck pain Skin/Breast Denies rash Neuro Denies dizziness and Denies headache(s) Endo Denies fatigue and Denies palpitations Physical exam (Primary Care) Vital Signs: Last Vital Signs Pulse 65 06/11/23 09:58 BP 114/64 06/11/23 09:58 Pulse Ox 100 06/11/23 09:58 Oxygen Delivery Method Room Air 06/11/23 09:58 BMI result Body Mass Index 18.4 Tobacco/Smoking Status: Tobacco use Status Tobacco use date assessed 06/11/23 06/11/23 09:59 Patient Tobacco Use Status Never used Tobacco 06/11/23 09:59 e-Cigarette/Vaping Use Never Used 06/11/23 09:59 PHQ-9: PHQ-9 Score PHQ-9: Total score 0 06/11/23 10:40 Depression Screening Interpretation: Negative Thrive Assessment: Date of Thrive Assessment Date Thrive assessed 06/11/23 06/11/23 09:59 Currently or been in a relationship where the following occur: no concerns reported Const General: no acute distress and alert HENMT Ears: TM's normal bilaterally and EAC's normal Throat: Yes posterior oropharynx normal, Yes tonsils normal (no TP congestion) and Yes uvula midline Neck Neck: Yes no lymphadenopathy and Yes supple Thyroid: Thyroid normal Resp Auscultation: clear to auscultation bilaterally, no rales and no wheezes Cardio Rate: regular rate Rhythm: regular rhythm Heart sounds: no murmurs GI Palpation (GI): Soft to palpation and nontender Auscultation: normal bowel sounds General: Yes no CVA tenderness Back/Spine/Pelvis Back: no CVA tenderness Skin Rashes: no rashes Extrem General: Yes no clubbing, cyanosis or edema Assessment and Plan Assessment & Plan (1) Pure hypercholesterolemia: Code(s): E78.00 - Pure hypercholesterolemia, unspecified Plan: No follow up labs were ordered for patient for this visit Reinforced low cholesterol diet Continue Atorvastatin 10 mg QD Will recheck her labs and fasting lipids in 6 months for follow up (2) Osteoporosis: Code(s): M81.0 - Age-related osteoporosis without current pathological fracture Qualifiers: Osteoporosis type: age-related Presence of current pathological fracture: without current pathological fracture Qualified Code(s): M81.0 - Age-related osteoporosis without current pathological fracture Plan: Previous BMD done on 11/23/2020 showed no significant change in BMD from previous although her left femoral neck BMD has declined 8.6% from her baseline BMD in 2016 Her most recent BMD done on 12/26/2022 revealed (+) osteoporosis based on the lowest T-score value of -3.3 in the total femur Her hip (left femur) BMD showed most of the decline, dropping 4.1% from previous and 12.3% from her baseline Patient has been on Alendronate since mid-2018 and she is now instructed to finish up her current stock, after which we will STOP her Alendronate (completed 5 yrs of oral bisphosphonate Tx) Have discussed with patient again the option of switching her over to Prolia (Rx was approved when Prolia was sent in previously but patient decided not to switch eventually as she did not want to have to deal with another injection for now ) particularly since her BMD apparently declined despite her being on Alendronate, and we can continue this discussion at her next appointment in 6 months Will also send her for urine NTx for further evaluation She is reminded again to continue regular exercise and physical activity to help build new bone but reinforced fall precautions to minimize injuries and potential fractures since her risk is higher due to her osteoporosis Can also consider referring her to endocrinology later on for further management of her osteoporosis (3) Throat discomfort: Code(s): R07.0 - Pain in throat Plan: Patient reports experiencing on and off right-sided throat discomfort/pressure and occasional pain especially when she is swallowing since February 2023 but denies any difficulty swallowing Throat exam in the office today appears grossly normal but explained to patient that what we can see is very limited and only up to the posterior pharynx Have discussed option of referring her to ENT for a direct laryngoscopy which can be done in the office setting or sending her for an upper GI series for further evaluation but advised that between the 2 options, an office laryngoscopy would like provide a more detailed exam Will try her empirically on oral Prednisone 20 mg QD for a few days and advised that if her symptoms clear up with Prednisone, then we can hold off on any further testing or evaluation for now BUT if it does not help, have instructed patient to call and we can then refer her to ENT for further work ups - patient is agreeable to this plan (4) Insomnia: Code(s): G47.00 - Insomnia, unspecified Qualifiers: Insomnia type: unspecified Qualified Code(s): G47.00 - Insomnia, unspecified Plan: Sleep hygiene reinforced Continue Zolpidem 10 mg Q HS PRN Plan Follow up in 6 months Orders: Orders Comprehensive [place]. Panel Fast 6 Months E78.00 - Pure hypercholesterolemia, unspecified TSH reflex Free T4 6 Months E78.00 - Pure hypercholesterolemia, unspecified UA CC w/rflx Micro + Cult 6 Months R30.0 - Dysuria Vitamin D 25-OH Total 6 Months E55.9 - Vitamin D deficiency, unspecified Collagen Crosslinks NTX 6 Months M81.0 - Age-related osteoporosis without current pathological fracture Complete Blood Count Auto Diff 6 Months D64.9 - Anemia, unspecified Lipid Panel 6 Months E78.00 - Pure hypercholesterolemia, unspecified Medications: New prednisone 20 mg PO DAILY 5 days 5 tabs 0RF Coding Level of Care Code Est Pt Level 4 (71704) Diagnoses Pure hypercholesterolemia E78.00 Age-related osteoporosis without current pathological fracture M81.0 Osteoporosis type: age-related Presence of current pathological fracture: without current pathological fracture Throat discomfort R07.0 Insomnia, unspecified type G47.00 Insomnia type: unspecified
== END 2023-06-11 11:04 | disposition home or self-care (01) ==
PROVIDERS: PCP Internal Medicine; Visit Provider Internal Medicine
DX: E78.00 Pure hypercholesterolemia, unspecified (principal); M81.0 Age-related osteoporosis without current pathological fracture; R07.0 Pain in throat; G47.00 Insomnia, unspecified
CPT/HCPCS: 99214

== ENCOUNTER 2023-12-07 07:42 | Outpatient (REF) | payer MEDICARE, SELFPAY ==
[2023-12-07 08:12] LABS: MANUAL DIFF FLAG NO
[2023-12-07 08:51] LABS: Basophils Percent Auto 0.7 % (0-2); Eosinophils Absolute Auto 0.1 X10*3/uL (0.0-0.4); Eosinophils Percent Auto 2.4 % (0-4); Hematocrit 43.1 % (37.0-47.0); Hemoglobin 13.9 g/dl (12.0-16.0); Imm Gran Abs Auto 0.01 X10*3/uL (0.00-0.03); Imm Gran Pct Auto 0.2 % (0.0-0.4); Lymphocytes Absolute Auto 1.8 X10*3/uL (1.2-4.9); Lymphocytes Percent Auto 30.4 % (20-40); Mean Corpuscular HGB Conc 32.3 g/dl (31.0-35.0); Mean Corpuscular Hemoglobin 30.1 pg (27.0-33.0); Mean Corpuscular Volume 93.3 fL (80.0-98.0); Mean Platelet Volume 10.5 fL (9.4-12.3); Monocytes Absolute Auto 0.5 X10*3/uL (0.1-1.2); Monocytes Percent Auto 8.1 % (2-11); Neutrophils Absolute Auto 3.4 x10*3/uL (2.0-8.3); Neutrophils Percent Auto 58.2 % (45-73); Platelet Count 295 X10*3/uL (160-400); Red Blood Count 4.62 X10*6/uL (4.20-5.50); Red Cell Distribution Width 12.9 % (11.0-16.0); White Blood Count 5.9 X10*3/uL (4.8-10.8)
[2023-12-07 09:05] LABS: Appearance Urine Clear; Color Urine Yellow; Glucose Urine UA Negative (Negative); Leukocyte Esterase Urine Small (1+) (Negative); Nitrite Urine Negative (Negative); PH 7.5 (5.0-9.0); Specific Gravity - Urine 1.015 (1.005-1.025); UMIC TRIGGER UACC YES; Urine Blood Negative (Negative); Urine Ketones Negative (Negative); Urine Protein Negative (Neg-Trace)
[2023-12-07 09:20] LABS: Bacteria Urine None Seen (None Seen); Hyaline Casts Urine 0-2 /LPF (0-2); RBC Urine 0-2 /HPF (0-2); Squamous Epithelial Cell Urine 0-2 /HPF (0-2); UACC Culture Trigger YES; WBC Urine 0-5 /HPF (0-5)
[2023-12-07 09:23] LABS: Alanine Aminotransferase 21 U/L (0-31); Albumin Level 3.9 g/dL (3.5-5.0); Alkaline Phosphatase 77 U/L (39-117); Anion Gap 9 (12-20); Aspartate Amino Transferase 23 U/L (5-31); Bilirubin Total 0.8 mg/dL (0.0-1.0); Blood Urea Nitrogen 11 mg/dL (9-16); Calcium 9.2 mg/dL (8.4-10.2); Carbon Dioxide 30 mmol/L (22-29); Chloride 106 mmol/L (96-108); Cholesterol 158 mg/dL (<200); Estimated Glomerular Filt Rate > 60; Glucose Fasting 88 mg/dL (60-99); HDL Cholesterol 62 mg/dL (>40); LDL Cholesterol Calculated 87 mg/dL (<100); Sodium 141 mmol/L (135-145); Total Protein 6.8 g/dL (6.5-8.0); Triglycerides 49 mg/dL (<150)
[2023-12-07 09:42] LABS: TSH reflex Free T4 2.32 uIU/mL (0.32-4.0); Vitamin D 25-OH Total 47.2 ng/mL (>30)
[2023-12-16 12:34] LABS: N-Telopeptide 26 (see note); NTXCreaRU 168 mg/dL (20-275)
== END 2023-12-07 07:43 | disposition home or self-care (01) ==
LOC: HO.LAB 07:42
PROVIDERS: PCP Internal Medicine; Visit Provider Internal Medicine
DX: M81.0 Age-related osteoporosis without current pathological fracture (principal); E78.00 Pure hypercholesterolemia, unspecified; E55.9 Vitamin D deficiency, unspecified; D64.9 Anemia, unspecified; R30.0 Dysuria
CPT/HCPCS: 36415; 80053; 80061; 81001; 81003; 82306; 82523; 84443; 85025; 87086

== ENCOUNTER 2023-12-12 09:33 | Outpatient (AMB) | payer MEDICARE, SELFPAY ==
[2023-12-12 09:36] VITALS: BP 120/76; PULSE 61; O2SAT 97; BMI 18.3
--- NOTE | 2023-12-12 09:36 | A.OFFPC_ITS ---
Vital Signs 12/12/23 09:36 Height 5 ft 6 in Weight 113 lb 4 oz BMI 18.3 BP 120/76 Blood Pressure Location Lt brachial Position Sitting Pulse 61 Pulse Source Pulse Oximeter Pulse Oximetry (%) 97 Oxygen Delivery Method Room Air Intake Visit Reasons: 6mth f/u Wire Sawyer Required: No Accompanied by: Self / Same As Patient Allergies No Known Allergies [No Known Allergies*] Allergy (Verified 12/12/23 10:15) Medication List - Last Reconciled 12/12/23 by Gareth Boudreaux MD atorvastatin 10 mg PO DAILY zolpidem 5 mg PO BEDTIME PRN 90 days Tobacco use date assessed: 12/12/23 Fall risk assessment: No Falls in past year Last assessed Fall Risk: 12/12/23 Dental Screening Dental Screen Date: 12/12/23 Did you have a dental visit in the last 12 months?: Yes Did you have a dental problem in the last 6 months where you did not have access to dental care?: No Was dental information given to patient?: Patient has dentist HPI 6m f/u HPI Details Patient comes in today for her follow-up visit States that she feels okay She denies any headaches or dizziness Denies any chest pains, no shortness of breath No nausea/vomiting, no abdominal pain No change in bowel habits noted She had her follow-up labs done last week - to discuss her results Patient adds that 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 and she is currently waiting to see if she is going to be assigned to a new electrician journeyman wireman in the same practice that she was going to before but in the meantime, her annual mammogram is due and she was advised that until she is seen by a new electrician journeyman wireman there, they cannot order her mammogram for her and she is wondering if we can order her mammogram this time She also finished her Alendronate and stopped taking it a couple of months ago per our instruction as she has been on Alendronate for about 5 years now She is now wondering what she should do next and if she needs to be switched to another medication now for her osteoporosis She will be due for a repeat bone density in December of 2024 for follow-up She would also like to get her flu shot today PFS Medical History (Updated 12/12/23 @ 23:01 by Gareth Boudreaux MD) Underweight Hyperkalemia Insomnia Osteoporosis Pure hypercholesterolemia Surgical History History of colonoscopy Family History Father Medical history unknown Mother Medical history unknown Son In good health Son In good health Social History Housing: House Alcohol intake: never Patient Tobacco Use Status: Never used Tobacco e-Cigarette/Vaping Use: Never Used Second Hand Smoke Exposure: No service: No Current occupational status: retired Cognitive needs: No Hearing needs: No Vision needs: Yes Questionnaire PHQ-9 Over the last 2 weeks, how often have you been bothered by any of the following problems? 1. Little interest or pleasure in doing things: not at all 2. Feeling down, depressed, or hopeless: not at all 3. Trouble falling or staying asleep, or sleeping too much: not at all 4. Feeling tired or having little energy: not at all 5. Poor appetite or overeating: not at all 6. Feeling bad about yourself - or that you are a failure or have let yourself or your family down: not at all 7. Trouble concentrating on things, such as reading the newspaper or watching television: not at all 8. Moving or speaking so slowly that other people could have noticed. Or the opposite - being so fidgety or restless that you have been moving around a lot more than usual: not at all 9. Thoughts that you would be better off or of hurting yourself in some way: not at all Total score: 0 Depression Screening Interpretation: Negative Depression Screening Done: Yes 70368 - PHQ-9 Billing: Yes Source: Developed by Drs. Daniel Botello, Shayy Foley, Wade Adorno and colleagues, with an educational delvin from [employer]. Thrive Questionnaire Date Thrive assessed: 12/12/23 I am a: Patient What is your living situation today?: I have a steady place to live Within the past 12 months, did the food you bought not last and you didn't have the money to get more?: Never true Within the past 12 months, did you worry whether your food would run out before you got money to buy more?: Never true Do you have trouble paying for medicines?: No Do you have trouble getting transportation to medical appointments?: No Do you have trouble paying your heating and electricity bill?: No Do you have trouble taking care of your child, family member or friend?: No Do you have trouble with day-to-day activities such as bathing, preparing meals, shopping, managing finances, etc.?: No Are you currently unemployed and looking for a job?: No Are you interested in more education?: No Please select the resources that you would like help with: None Currently or been in a relationship where the following occur: No concerns reported THRIVE Score: 0 AUDIT C Alcohol Use Questionnaire (AUDIT-C) 1. How often do you have a drink containing alcohol?: Never 3. How often do you have six or more drinks on one occasion?: Never Total Score: 0 Score Reviewed/Action Taken: Yes ANTON-7 AMB Questionnaire ANTON-7 Date ANTON - 7 assessed: 12/12/23 Feeling nervous, anxious, or on edge: 0 = Not at all Not being able to stop or control worryin = Not at all Worrying too much about different things: 0 = Not at all Trouble relaxin = Not at all Being so restless that it is hard to sit still: 0 = Not at all Becoming easily annoyed or irritable: 0 = Not at all Feeling afraid as if something awful might happen: 0 = Not at all Total ANTON-7 score (0-4 normal; 5-9 mild; 10-14 moderate; 15-21 severe): 0 Source: Developed by Drs. Daniel Botello, Shayy Foley, Wade Adorno and colleagues, with an educational delvin from [employer]. Review of Systems Const Denies chills, Denies fatigue, Denies fever(s) and Denies headache(s) ENT Denies dysphagia, Denies dizziness, Denies otalgia, Denies headache(s), Denies neck pain, Denies odynophagia and Denies sore throat Card Denies chest pain, Denies palpitations and Denies dyspnea Resp Denies chest congestion, Denies cough and Denies dyspnea GI Denies abdominal pain, Denies constipation, Denies dysphagia, Denies heartburn, Denies diarrhea, Denies nausea, Denies odynophagia and Denies vomiting Denies difficulty voiding, Denies nocturia, Denies dysuria and Denies urinary urgency Musc Denies back pain, Denies arthralgias and Denies neck pain Skin/Breast Denies rash Neuro Denies dizziness and Denies headache(s) Psych Denies anxiety and Denies depression Endo Denies fatigue and Denies palpitations Physical exam (Primary Care) Vital Signs: Last Vital Signs Pulse 61 12/12/23 09:36 BP 120/76 12/12/23 09:36 Pulse Ox 97 12/12/23 09:36 Oxygen Delivery Method Room Air 12/12/23 09:36 BMI result Body Mass Index 18.3 Tobacco/Smoking Status: Tobacco use Status Tobacco use date assessed 12/12/23 12/12/23 09:41 Patient Tobacco Use Status Never used Tobacco 12/12/23 09:41 e-Cigarette/Vaping Use Never Used 12/12/23 09:41 PHQ-9: PHQ-9 Score PHQ-9: Total score 0 12/12/23 10:26 Depression Screening Interpretation: Negative Thrive Assessment: Date of Thrive Assessment Date Thrive assessed 12/12/23 12/12/23 09:41 Currently or been in a relationship where the following occur: No concerns reported Const General: no acute distress and alert HENMT Ears: TM's normal bilaterally and EAC's normal Throat: Yes posterior oropharynx normal and Yes tonsils normal (no TP congestion) Neck Neck: Yes no lymphadenopathy and Yes supple Thyroid: Thyroid normal Resp Auscultation: clear to auscultation bilaterally, no rales and no wheezes Cardio Rate: regular rate Rhythm: regular rhythm Heart sounds: no murmurs GI Palpation (GI): Soft to palpation and nontender Auscultation: normal bowel sounds General: Yes no CVA tenderness Back/Spine/Pelvis Back: no CVA tenderness Thoracic/Lumbar Spine: No lumbar spinal tenderness Skin Rashes: no rashes Extrem General: Yes no clubbing, cyanosis or edema Office Procedures Flu Questionnaire Does the patient have a severe egg allergy?: No Does the patient have severe life threatening allergies?: No Does the patient have a fever or illness today?: No Has the patient ever had Guillain-Dorsey Syndrome?: No Has the patient ever had any past reaction to a flu shot?: No Immunizations Fluarix Triv 6601-8405 (PF) 45 mcg (15 mcg x 3)/0.5 mL IM syringe Performing Provider: Gareth Boudreaux MD [facility] [place] [facility] Administered by: RODY Gutierrez on 12/12/23 09:48 Dose Route Admin Location Dispensed Lot Number Expiration Date NDC Diazo Technician 0.5 mL IM Left Deltoid 0.5 mL [id number] 08/17/24 [id number] [employer] VIS Given Date VIS Provided VIS Publication Date 12/12/23 Single Vaccine 20 Eligibility Eligibility Date Funding Source Not [facility] Eligible 12/12/23 Private Results Reviewed Results Reviewed: Laboratory Tests 12/07/23 12/07/23 08:09 08:11 WBC 5.9 Hgb 13.9 Hct 43.1 Plt Count 295 Sodium 141 Potassium 4.0 Creatinine 0.76 Estimated GFR > 60 Fasting Glucose 88 Calcium 9.2 AST 23 ALT 21 Triglycerides 49 Cholesterol 158 LDL Cholesterol, Calc 87 HDL Cholesterol 62 25-OH Vitamin D Total 47.2 TSH 2.32 Ur Specific [place] 1.015 Urine Protein Negative Urine Glucose (UA) Negative Urine Blood Negative Urine Nitrite Negative Ur Leukocyte Esterase Small (1+) H Coding Level of Care Code Est Pt Level 4 (58170) Diagnoses Pure hypercholesterolemia E78.00 Age-related osteoporosis without current pathological fracture M81.0 Osteoporosis type: age-related Presence of current pathological fracture: without current pathological fracture Insomnia, unspecified type G47.00 Insomnia type: unspecified Breast cancer screening by mammogram Z12.31 Assessment & Plan Assessment & Plan (1) Pure hypercholesterolemia: Code(s): E78.00 - Pure hypercholesterolemia, unspecified Category: Medical Plan: Results of her labs done last week reviewed and discussed with patient Reinforced low cholesterol diet Continue Atorvastatin 10 mg QD Will recheck her labs and fasting lipids in 6 months for follow up (2) Osteoporosis: Code(s): M81.0 - Age-related osteoporosis without current pathological fracture Category: Medical Qualifiers: Osteoporosis type: age-related Presence of current pathological fracture: without current pathological fracture Qualified Code(s): M81.0 - Age- related osteoporosis without current pathological fracture Plan: Her most recent BMD done on 12/26/2022 revealed osteoporosis based on the lowest T-score value of -3.3 in the total femur There has been no significant change from her BMD a few years ago on 11/23/2020 Patient has been on Alendronate since mid-2018 and she was instructed at her last visit to just finish up her remaining supply of Alendronate and then stop it as she has completed treatment on it for 5 years She has been previously advised on switching over to Prolia but patient decided not to switch at the time as she did not want to have to deal with another injection then ) We also sent her for labs to check her N-telopeptide level and this is still pending at this time If her level comes back high, would then recommend she start an alternative form of Tx for her osteoporosis Will also refer her to endocrinology for further recommendations regarding Tx of her condition Patient is again reminded to continue regular exercise and physical activity but reinforced fall precautions since her fracture risk is high due to her osteoporosis (3) Insomnia: Code(s): G47.00 - Insomnia, unspecified Category: Medical Qualifiers: Insomnia type: unspecified Qualified Code(s): G47.00 - Insomnia, unspecified Plan: Sleep hygiene reinforced Continue Zolpidem 10 mg Q HS PRN (4) Breast cancer screening by mammogram: Code(s): Z12.31 - Encounter for screening mammogram for malignant neoplasm of breast Category: Medical Plan: Per request, annual memmogram ordered - patient prefers to have this done at [facility] as that is where all of her previous scans are Plan As requested, flu vaccine given to the patient today Follow up in 6 months Orders: Orders Influenza [id number] Immunization Today Z23 - Encounter for immunization Complete Blood Count Auto Diff 6 Months D64.9 - Anemia, unspecified Lipid Panel 6 Months E78.00 - Pure hypercholesterolemia, unspecified MM tomosynthesis screening BI Today Z12.31 - Encounter for screening mammogram for malignant neoplasm of breast Comprehensive [place]. Panel Fast 6 Months E78.00 - Pure hypercholesterolemia, unspecified Referrals Endocrinology Referral M81.0 - Age-related osteoporosis without current pathological fracture
== END 2023-12-12 10:28 | disposition home or self-care (01) ==
PROVIDERS: PCP Internal Medicine; Visit Provider Internal Medicine
DX: E78.00 Pure hypercholesterolemia, unspecified (principal); M81.0 Age-related osteoporosis without current pathological fracture; G47.00 Insomnia, unspecified; Z12.31 Encounter for screening mammogram for malignant neoplasm of breast

== ENCOUNTER → 2023-12-12 09:33 | Outpatient (BNVA) | payer MEDICARE, SELFPAY | PROVIDERS: PCP Internal Medicine; Visit Provider Internal Medicine | DX: Z23 Encounter for immunization (principal); E78.00 Pure hypercholesterolemia, unspecified; M81.0 Age-related osteoporosis without current pathological fracture; G47.00 Insomnia, unspecified | CPT/HCPCS: 90471; 90656; 99212 ==

== ENCOUNTER 2023-12-25 09:43 | Outpatient (AMB) | payer MEDICARE, SELFPAY ==
--- NOTE | 2023-12-25 09:44 | MHC.OFFVIS ---
Vital Signs 12/25/23 09:45 Height 5 ft 6 in Weight 115 lb 15.41 oz BMI 18.7 BP 112/60 Blood Pressure Location Lt brachial Position Sitting Pulse 60 Pulse Source Pulse Oximeter Intake Visit Reasons: Age-related osteoporosis-conf Intake Note: New patient internally referred by PCP for Osteoporosis. Ibm Mainframe Developer Required: No Accompanied by: Self / Same As Patient Allergies No Known Allergies [No Known Allergies*] Allergy (Verified 12/25/23 09:48) Medication List - Last Reconciled 12/25/23 by Daniel Velásquez MD atorvastatin 10 mg PO DAILY zolpidem 5 mg PO BEDTIME PRN 90 days HPI Comments Details: 73 YO Female with PMHx osteoporosis is seen in consultation at the request of PCP for Osteoporosis. First diagnosed in 10 yrs ago .Never saw specialist before Received treatment in the past with alendronate , for 5-6 yrs of therapy stopped this yr . Took 5 yrs of alendronate yrs ago Tolerated treatment well without complication. No history of pathologic fracture or ONJ. Has several servings of dietary calcium per day in the form of cheese, broccoli . Takes Calcium supplement 600 mg daily in divided doses. Takes ? IU of Vitamin D daily every other day . Denies ever using PPI, anticoagulant, antiepileptic or glucocorticoid medication. Not Does weight bearing exercise . 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 UTD on dental cleanings and sees dentist every 6 months. No planned upcoming dental work or extractions. DXA dated 12/26/2022 :OMPARISON: Previous BD dated 11/23/2020 and baseline BD dated 04/22/2015. TECHNIQUE: Using a BRAINDIGIT DXA System (software version: 13.1) manufactured by [employer], dual-energy x-ray absorptiometry was performed of the lumbar spine and left hip. The images are of good technical quality. Summary results are attached. FINDINGS: LEFT FEMUR, NECK: Current: BMD 0.632 g/cm2, Z-score -0.9, T-score -2.9, osteoporosis. Prior: BMD 0.629 g/cm2. Baseline: BMD 0.682 g/cm2. LEFT FEMUR, TOTAL: Current: BMD 0.592 g/cm2, Z-score -1.5, T-score -3.3, osteoporosis, 4.1% decrease from previous, 12.3% decrease from baseline (<5% change is not significant). Prior: BMD 0.617 g/cm2. Baseline: BMD 0.675 g/cm2. AP SPINE L1-L4: Current: BMD 0.799 g/cm2, Z-score -1.0, T-score -3.2, osteoporosis, 1.9% increase from previous, 0.1% increase from baseline (<5% change is not significant). Prior: BMD 0.784 g/cm2. Baseline: BMD 0.798 g/cm2. IDENTIFIED RISK FACTORS: Menopause, height loss, osteoporosis. HISTORY OF FRACTURE: None listed. MEDICATIONS: Calcium supplements or multivitamin, vitamin D, bisphosphonate. MM/XR DEXA axial skeleton IMPRESSION: 1. DIAGNOSIS: Osteoporosis based on the lowest T-score value of -3.3 in the total femur applying World Health Organization criteria. Labs: [facility] Medical History (Updated 12/12/23 @ 23:01 by Gareth Boudreaux MD) Underweight Hyperkalemia Insomnia Osteoporosis Pure hypercholesterolemia Surgical History History of colonoscopy Family History Father Medical history unknown Mother Medical history unknown Son In good health Son In good health Social History Housing: House Alcohol intake: never Patient Tobacco Use Status: Never used Tobacco e-Cigarette/Vaping Use: Never Used Second Hand Smoke Exposure: No service: No Current occupational status: retired Cognitive needs: No Hearing needs: No Vision needs: Yes Physical Exam There are no Cushingoid features. Absence of blue sclera. Absence of kyphosis. Thyroid gland is of nl size and weighs 15 gms. There are no thyroid nodules palpated. Lungs CTA. Heart S1 S2 Reg R/R Abdominal exam benign. Muscle strength 5/5 . Examination of spine reveals absence of tenderness on palpation Assessment & Plan Assessment & Plan (1) Osteoporosis: Code(s): M81.0 - Age-related osteoporosis without current pathological fracture Category: Medical Qualifiers: Osteoporosis type: age-related Presence of current pathological fracture: without current pathological fracture Qualified Code(s): M81.0 - Age-related osteoporosis without current pathological fracture Plan: This is a 73-year-old white female with a history of osteoporosis previously treated with a bisphosphonate for 5 years with residual very low bone density. Partial secondary workup has been negative. Urine NTX is suppressed Plan is to complete the secondary workup by doing SPEP, urine immunofixation, phosphorus, 24 hour urine for calcium and creatinine .will ensure 1200 mg of calcium and continue vitamin-D supplementation. Assuming secondary workup is negative could consider a course of anabolic therapy followed by resumption of anti resorptive therapy for maximal benefit S patient is a very high risk for fracture Orders: Orders Protein Electrophoresis, Serum Today M81.0 - Age-related osteoporosis without current pathological fracture Immunofixation, Random Urine Today M81.0 - Age-related osteoporosis without current pathological fracture Phosphorus Today M81.0 - Age-related osteoporosis without current pathological fracture Calcium, 24 Hr Ur Today M81.0 - Age-related osteoporosis without current pathological fracture Creatinine, 24 Hr Group Today M81.0 - Age-related osteoporosis without current pathological fracture Coding Level of Care Code New Pt Level 4 (49335) Diagnoses Age-related osteoporosis without current pathological fracture M81.0 Osteoporosis type: age-related Presence of current pathological fracture: without current pathological fracture
[2023-12-25 09:45] VITALS: BP 112/60; PULSE 60; BMI 18.7
== END 2023-12-25 10:29 | disposition home or self-care (01) ==
LOC: HO.ENCR 09:44
PROVIDERS: PCP Internal Medicine; Visit Provider Internal Medicine Endocrinology, Diabetes & Metabolism
DX: M81.0 Age-related osteoporosis without current pathological fracture (principal)
CPT/HCPCS: 99204

== ENCOUNTER → 2023-12-25 09:43 | Outpatient (BNVA) | payer MEDICARE, SELFPAY | PROVIDERS: PCP Internal Medicine; Visit Provider Internal Medicine Endocrinology, Diabetes & Metabolism | DX: M81.0 Age-related osteoporosis without current pathological fracture (principal) | CPT/HCPCS: 99202 ==

== ENCOUNTER 2023-12-27 09:22 | Outpatient (REF) | payer MEDICARE, SELFPAY ==
[2023-12-27 11:20] LABS: Phosphorus 3.2 mg/dL (2.7-4.5)
[2023-12-27 12:15] LABS: Creatinine, mg/dL 76.46
[2023-12-27 14:12] LABS: Creatinine, 24Hr Urine 0.8 G/Day (1.0-2.0); Total Volume 24 Hour Urine 1000 mL
[2023-12-30 10:54] LABS: Prot Elec - Alpha1 0.2 g/dL (0.2-0.3); Prot Elec - Alpha2 0.6 g/dL (0.5-0.9); Prot Elec - Beta 1 0.4 g/dL (0.4-0.6); Prot Elec - Beta 2 0.3 g/dL (0.2-0.5); Prot Elec - Gamma 1.2 g/dL (0.8-1.7); Prot Elec - Total Protein 6.6 g/dL (6.1-8.1)
[2023-12-30 17:37] LABS: Calcium, 24 Hr Urine 177 mg/24 h; Calcium/Creatinine Ratio 239 mg/g creat (30-275); Creatinine 24Hr Urine 0.74 g/24 h (0.50-2.15)
== END 2023-12-27 09:23 | disposition home or self-care (01) ==
LOC: HO.10HDL 09:22
PROVIDERS: Visit Provider Internal Medicine Endocrinology, Diabetes & Metabolism
DX: M81.0 Age-related osteoporosis without current pathological fracture (principal)
CPT/HCPCS: 82340; 82570; 84100; 84165; 86335

== ENCOUNTER → 2024-03-26 09:49 | Outpatient (BNVA) | payer MEDICARE, SELFPAY | PROVIDERS: PCP Internal Medicine; Visit Provider Internal Medicine Endocrinology, Diabetes & Metabolism | DX: M81.0 Age-related osteoporosis without current pathological fracture (principal) | CPT/HCPCS: 99212 ==

== ENCOUNTER 2024-05-23 07:57 | Outpatient (REF) | payer MEDICARE, SELFPAY ==
[2024-05-23 08:09] LABS: MANUAL DIFF FLAG NO
[2024-05-23 08:36] LABS: Basophils Absolute Auto 0.1 X10*3/uL (0.0-0.2); Basophils Percent Auto 1.3 % (0-2); Eosinophils Absolute Auto 0.1 X10*3/uL (0.0-0.4); Eosinophils Percent Auto 2.4 % (0-4); Hematocrit 43.1 % (37.0-47.0); Hemoglobin 13.8 g/dl (12.0-16.0); Imm Gran Abs Auto 0.01 X10*3/uL (0.00-0.03); Imm Gran Pct Auto 0.2 % (0.0-0.4); Lymphocytes Absolute Auto 1.2 X10*3/uL (1.2-4.9); Lymphocytes Percent Auto 26.7 % (20-40); Mean Corpuscular Volume 93.7 fL (80.0-98.0); Mean Platelet Volume 10.8 fL (9.4-12.3); Monocytes Absolute Auto 0.6 X10*3/uL (0.1-1.2); Monocytes Percent Auto 13.2 % (2-11); Neutrophils Absolute Auto 2.6 x10*3/uL (2.0-8.3); Neutrophils Percent Auto 56.2 % (45-73); Platelet Count 261 X10*3/uL (160-400); Red Cell Distribution Width 13.1 % (11.0-16.0); White Blood Count 4.6 X10*3/uL (4.8-10.8)
[2024-05-23 09:55] LABS: Alanine Aminotransferase 16 U/L (0-31); Albumin Level 3.9 g/dL (3.5-5.0); Alkaline Phosphatase 99 U/L (39-117); Anion Gap 12 (12-20); Aspartate Amino Transferase 27 U/L (5-31); Bilirubin Total 0.5 mg/dL (0.0-1.0); Blood Urea Nitrogen 14 mg/dL (9-16); Calcium 8.8 mg/dL (8.4-10.2); Carbon Dioxide 26 mmol/L (22-29); Chloride 107 mmol/L (96-108); Cholesterol 152 mg/dL (<200); Estimated Glomerular Filt Rate > 60; Glucose Fasting 87 mg/dL (60-99); HDL Cholesterol 61 mg/dL (>40); LDL Cholesterol Calculated 80 mg/dL (<100); Potassium 4.5 mmol/L (3.3-5.1); Sodium 140 mmol/L (135-145); Total Protein 6.8 g/dL (6.5-8.0); Triglycerides 57 mg/dL (<150)
== END 2024-05-23 07:58 | disposition home or self-care (01) ==
LOC: HO.LAB 07:57
PROVIDERS: PCP Internal Medicine; Visit Provider Internal Medicine
DX: D64.9 Anemia, unspecified (principal); E78.00 Pure hypercholesterolemia, unspecified
CPT/HCPCS: 36415; 80053; 80061; 85025

== ENCOUNTER 2024-06-11 09:39 | Outpatient (AMB) | payer MEDICARE, SELFPAY ==
--- NOTE | 2024-06-11 09:49 | MHC.PC.OV ---
Vital Signs 06/11/24 09:50 Height 5 ft 6 in Weight 111 lb 4 oz BMI 18.0 BP 116/72 Blood Pressure Location Lt brachial Position Sitting Pulse 58 Pulse Source Pulse Oximeter Pulse Oximetry (%) 96 Oxygen Delivery Method Room Air Intake Visit Reasons: hyperlipidemia, osteoporosis Family Caseworker Required: No Accompanied by: Self / Same As Patient Allergies No Known Allergies [No Known Allergies*] Allergy (Verified 06/11/24 10:08) Medication List - Last Reconciled 06/11/24 by Gareth Boudreaux MD atorvastatin 10 mg PO DAILY romosozumab-aqqg (Evenity) 210 mg (2.34 mL) subcut .qmonth zolpidem 5 mg PO BEDTIME PRN 90 days Tobacco use date assessed: 06/11/24 Fall risk assessment: No Falls in past year Last assessed Fall Risk: 06/11/24 Dental Screening Dental Screen Date: 06/11/24 Did you have a dental visit in the last 12 months?: Yes Did you have a dental problem in the last 6 months where you did not have access to dental care?: No Was dental information given to patient?: Patient has dentist HPI hyperlipidemia, osteoporosis HPI Details Patient comes in today for her follow up visit States that she feels okay She denies any headaches or dizziness Denies any chest pains, no SOB No nausea/vomiting, no abdominal pain No change in bowel habits noted States that she has noticed that her left big toenail has been progressively getting thicker, discolored and more disfigured over the past couple of years and would like to know what can be done to get her nail back to normal - states that she does not have any pain or discomfort on her left big toe Needs a couple of her Rx refilled She had her follow up labs done a few weeks ago - to discuss her results [facility] Medical History Underweight Hyperkalemia Insomnia Osteoporosis Pure hypercholesterolemia Surgical History History of colonoscopy Family History (Updated 06/11/24 @ 10:08 by Gareth Boudreaux MD) Father Medical history unknown Mother Shy-Drager syndrome Son In good health Son In good health Social History Housing: House Alcohol intake: never Patient Tobacco Use Status: Never used Tobacco e-Cigarette/Vaping Use: Never Used Second Hand Smoke Exposure: No service: No Current occupational status: retired Cognitive needs: No Hearing needs: No Vision needs: Yes Questionnaire PHQ-9 Over the last 2 weeks, how often have you been bothered by any of the following problems? 1. Little interest or pleasure in doing things: not at all 2. Feeling down, depressed, or hopeless: not at all 3. Trouble falling or staying asleep, or sleeping too much: not at all 4. Feeling tired or having little energy: not at all 5. Poor appetite or overeating: not at all 6. Feeling bad about yourself - or that you are a failure or have let yourself or your family down: not at all 7. Trouble concentrating on things, such as reading the newspaper or watching television: not at all 8. Moving or speaking so slowly that other people could have noticed. Or the opposite - being so fidgety or restless that you have been moving around a lot more than usual: not at all 9. Thoughts that you would be better off or of hurting yourself in some way: not at all Total score: 0 Depression Screening Interpretation: Negative Depression Screening Done: Yes 62815 - PHQ-9 Billing: Yes Source: Developed by Drs. Daniel Botello, Shayy Foley, Wade Adorno and colleagues, with an educational delvin from [employer]. Thrive Questionnaire Date Thrive assessed: 06/11/24 I am a: Patient What is your living situation today?: I have a steady place to live Within the past 12 months, did the food you bought not last and you didn't have the money to get more?: Never true Within the past 12 months, did you worry whether your food would run out before you got money to buy more?: Never true Do you have trouble paying for medicines?: No Do you have trouble getting transportation to medical appointments?: No Do you have trouble paying your heating and electricity bill?: No Do you have trouble taking care of your child, family member or friend?: No Do you have trouble with day-to-day activities such as bathing, preparing meals, shopping, managing finances, etc.?: No Are you currently unemployed and looking for a job?: No Are you interested in more education?: No Please select the resources that you would like help with: None Currently or been in a relationship where the following occur: No concerns reported THRIVE Score: 0 AUDIT C Alcohol Use Questionnaire (AUDIT-C) 1. How often do you have a drink containing alcohol?: Never 3. How often do you have six or more drinks on one occasion?: Never Total Score: 0 Score Reviewed/Action Taken: Yes ANTON-7 AMB Questionnaire ANTON-7 Date ANTON - 7 assessed: 06/11/24 Feeling nervous, anxious, or on edge: 0 = Not at all Not being able to stop or control worryin = Not at all Worrying too much about different things: 0 = Not at all Trouble relaxin = Not at all Being so restless that it is hard to sit still: 0 = Not at all Becoming easily annoyed or irritable: 0 = Not at all Feeling afraid as if something awful might happen: 0 = Not at all Total ANTON-7 score (0-4 normal; 5-9 mild; 10-14 moderate; 15-21 severe): 0 Source: Developed by Drs. Daniel Botello, Shayy Foley, Wade Adorno and colleagues, with an educational delvin from [employer]. Review of Systems Const Denies chills, Denies fatigue, Denies fever(s) and Denies headache(s) ENT Denies dysphagia, Denies dizziness, Denies otalgia, Denies headache(s), Denies neck pain, Denies odynophagia and Denies sore throat Card Denies chest pain, Denies palpitations and Denies dyspnea Resp Denies chest congestion, Denies cough and Denies dyspnea GI Denies abdominal pain, Denies constipation, Denies dysphagia, Denies heartburn, Denies diarrhea, Denies nausea, Denies odynophagia and Denies vomiting Denies difficulty voiding, Denies nocturia, Denies dysuria and Denies urinary urgency Musc Denies back pain, Denies arthralgias and Denies neck pain Skin/Breast Details: (+) thick, discolored and disfigured toenail on the left big toe Denies rash Neuro Denies dizziness and Denies headache(s) Psych Denies anxiety and Denies depression Endo Denies fatigue and Denies palpitations Physical exam (Primary Care) Vital Signs: Last Vital Signs Pulse 58 06/11/24 09:50 BP 116/72 06/11/24 09:50 Pulse Ox 96 06/11/24 09:50 Oxygen Delivery Method Room Air 06/11/24 09:50 BMI result Body Mass Index 18.0 Tobacco/Smoking Status: Tobacco use Status Tobacco use date assessed 06/11/24 06/11/24 09:56 Patient Tobacco Use Status Never used Tobacco 06/11/24 09:56 e-Cigarette/Vaping Use Never Used 06/11/24 09:56 PHQ-9: PHQ-9 Score PHQ-9: Total score 0 06/11/24 10:09 Depression Screening Interpretation: Negative Thrive Assessment: Date of Thrive Assessment Date Thrive assessed 06/11/24 06/11/24 09:56 Currently or been in a relationship where the following occur: No concerns reported Const General: no acute distress and alert HENMT Ears: TM's normal bilaterally and EAC's normal Throat: Yes posterior oropharynx normal and Yes tonsils normal (no TP congestion) Neck Neck: Yes supple and No lymphadenopathy Thyroid: Thyroid normal Resp Auscultation: clear to auscultation bilaterally, no rales and no wheezes Cardio Rate: regular rate Rhythm: regular rhythm Heart sounds: no murmurs GI Palpation (GI): Soft to palpation and nontender Auscultation: normal bowel sounds General: Yes no CVA tenderness Back/Spine/Pelvis Back: no CVA tenderness Thoracic/Lumbar Spine: No lumbar spinal tenderness Skin Rashes: no rashes Extrem Other: (+) thickened, discolored and disfigured toenail on the left big toe General: Yes no clubbing, cyanosis or edema Results Reviewed Results Reviewed: Laboratory Tests 05/23/24 08:09 WBC 4.6 L Hgb 13.8 Hct 43.1 Plt Count 261 Sodium 140 Potassium 4.5 Creatinine 0.82 Estimated GFR > 60 Fasting Glucose 87 Calcium 8.8 AST 27 ALT 16 Triglycerides 57 Cholesterol 152 LDL Cholesterol, Calc 80 HDL Cholesterol 61 Coding Level of Care Code Est Pt Level 4 (61567) Diagnoses Pure hypercholesterolemia E78.00 Age-related osteoporosis without current pathological fracture M81.0 Osteoporosis type: age-related Presence of current pathological fracture: without current pathological fracture Onychomycosis of toenail B35.1 Insomnia, unspecified type G47.00 Insomnia type: unspecified Additional Codes PHQ-9 - 21666 - PHQ-9 Billing: Yes ([id number]) Assessment & Plan Assessment & Plan (1) Pure hypercholesterolemia: Code(s): E78.00 - Pure hypercholesterolemia, unspecified Category: Medical Plan: Results of her labs done a few weeks ago reviewed and discussed with patient Reinforced low cholesterol diet Continue Atorvastatin 10 mg QD - Rx refilled Will recheck her labs and fasting lipids in 6 months for follow up (2) Osteoporosis: Code(s): M81.0 - Age-related osteoporosis without current pathological fracture Category: Medical Qualifiers: Osteoporosis type: age-related Presence of current pathological fracture: without current pathological fracture Qualified Code(s): M81.0 - Age-related osteoporosis without current pathological fracture Plan: Her most recent BMD done on 12/26/2022 revealed osteoporosis based on the lowest T-score value of -3.3 in the total femur - there has been no significant change from her BMD a few years ago on 11/23/2020 Patient has been on Alendronate since mid-2018 and she completed treatment x 5 years last year (2023) She was previously advised on switching over to Prolia but decided not to switch at the time as she did not want to have to deal with another injection then We referred her then to endocrinology for further recommendations regarding Tx of her condition and she was eventually started on Evenity 210 mg SQ once a month by Dr. Velásquez couple of months ago She will continue following up with endocrinology as scheduled for treatment and management of her osteoporosis Patient is again reminded to continue with regular exercises and physical activity but reinforced fall precautions as her fracture risk is high due to her osteoporosis (3) Onychomycosis of toenail: Comment: left big toenail Code(s): B35.1 - Tinea unguium Category: Medical Plan: Will refer her to podiatry for further evaluation and management (4) Insomnia: Code(s): G47.00 - Insomnia, unspecified Category: Medical Qualifiers: Insomnia type: unspecified Qualified Code(s): G47.00 - Insomnia, unspecified Plan: Sleep hygiene reinforced Continue Zolpidem 10 mg Q HS PRN - Rx refilled Plan Follow up in 6 months Orders: Orders Comprehensive Bruce. Panel Fast 6 Months E78.00 - Pure hypercholesterolemia, unspecified TSH reflex Free T4 6 Months E78.00 - Pure hypercholesterolemia, unspecified UA CC w/rflx Micro + Cult 6 Months R30.0 - Dysuria Complete Blood Count Auto Diff 6 Months D64.9 - Anemia, unspecified Lipid Panel 6 Months E78.00 - Pure hypercholesterolemia, unspecified Vitamin D 25-OH Total 6 Months E55.9 - Vitamin D deficiency, unspecified Referrals Podiatry Referral B35.1 - Tinea unguium Medications: Changed From atorvastatin 10 mg PO DAILY 90 tabs 3RF To atorvastatin 10 mg PO DAILY 90 days 90 tabs 3RF Refilled zolpidem 5 mg PO BEDTIME 90 days PRN 90 tabs 1RF insomnia G47.00 - Insomnia, unspecified
[2024-06-11 09:50] VITALS: BP 116/72; PULSE 58; O2SAT 96; BMI 18.0
== END 2024-06-11 10:27 | disposition home or self-care (01) ==
LOC: HO.HMCH 09:39
PROVIDERS: PCP Internal Medicine; Visit Provider Internal Medicine
DX: E78.00 Pure hypercholesterolemia, unspecified (principal); M81.0 Age-related osteoporosis without current pathological fracture; B35.1 Tinea unguium; G47.00 Insomnia, unspecified

== ENCOUNTER → 2024-06-11 09:39 | Outpatient (BNVA) | payer MEDICARE, SELFPAY | PROVIDERS: PCP Internal Medicine; Visit Provider Internal Medicine | DX: E78.00 Pure hypercholesterolemia, unspecified (principal); M81.0 Age-related osteoporosis without current pathological fracture; B35.1 Tinea unguium; G47.00 Insomnia, unspecified | CPT/HCPCS: 96127; 99212 ==

== ENCOUNTER 2024-07-22 09:46 | Outpatient (AMB) | payer MEDICARE, SELFPAY ==
[2024-07-22 09:51] VITALS: BP 108/68; PULSE 61; O2SAT 97; BMI 18.1
--- NOTE | 2024-07-22 09:51 | MHC.OFFVIS ---
Vital Signs 07/22/24 09:51 Height 5 ft 6 in Weight 111 lb 15.917 oz BMI 18.1 BP 108/68 Blood Pressure Location Lt brachial Position Sitting Pulse 61 Pulse Source Pulse Oximeter Pulse Oximetry (%) 97 Oxygen Delivery Method Room Air Intake Visit Reasons: Osteoporosis Intake Note: Patient present today for Osteoporosis follow up visit. Compensation Director Required: No Accompanied by: Self / Same As Patient Allergies No Known Allergies [No Known Allergies*] Allergy (Verified 07/22/24 09:56) Medication List - Last Reconciled 07/22/24 by Daniel Velásquez MD atorvastatin 10 mg PO DAILY 90 days romosozumab-aqqg (Evenity) 210 mg (2.34 mL) subcut .qmonth zolpidem 5 mg PO BEDTIME PRN 90 days HPI Comments Details: 74 YO Female with PMHx osteoporosis is seen in consultation at the request of PCP for Osteoporosis. First diagnosed in 10 yrs ago .Never saw specialist before Received treatment in the past with alendronate , for 5-6 yrs of therapy stopped this yr . Took 5 yrs of alendronate yrs ago Tolerated treatment well without complication. No history of pathologic fracture or ONJ. Has several servings of dietary calcium per day in the form of cheese, broccoli . Takes Calcium supplement 600 mg daily in divided doses. Takes ? IU of Vitamin D daily every other day . Denies ever using PPI, anticoagulant, antiepileptic or glucocorticoid medication. Not Does weight bearing exercise . Fracture history: No Height loss: Yes [employer] history: Menarche at age 15 - Menopause at age 50s- nl menses Denies history of Kidney stones: Denies family history of Osteoporosis or hip fracture. UTD on dental cleanings and sees dentist every 6 months. No planned upcoming dental work or extractions. DXA dated 12/26/2022 :OMPARISON: Previous BD dated 11/23/2020 and baseline BD dated 04/22/2015. TECHNIQUE: Using a [employer] DXA System (software version: 13.1) manufactured by [employer], dual-energy x-ray absorptiometry was performed of the lumbar spine and left hip. The images are of good technical quality. Summary results are attached. FINDINGS: LEFT FEMUR, NECK: Current: BMD 0.632 g/cm2, Z-score -0.9, T-score -2.9, osteoporosis. Prior: BMD 0.629 g/cm2. Baseline: BMD 0.682 g/cm2. LEFT FEMUR, TOTAL: Current: BMD 0.592 g/cm2, Z-score -1.5, T-score -3.3, osteoporosis, 4.1% decrease from previous, 12.3% decrease from baseline (<5% change is not significant). Prior: BMD 0.617 g/cm2. Baseline: BMD 0.675 g/cm2. AP SPINE L1-L4: Current: BMD 0.799 g/cm2, Z-score -1.0, T-score -3.2, osteoporosis, 1.9% increase from previous, 0.1% increase from baseline (<5% change is not significant). Prior: BMD 0.784 g/cm2. Baseline: BMD 0.798 g/cm2. IDENTIFIED RISK FACTORS: Menopause, height loss, osteoporosis. HISTORY OF FRACTURE: None listed. MEDICATIONS: Calcium supplements or multivitamin, vitamin D, bisphosphonate. MM/XR DEXA axial skeleton IMPRESSION: 1. DIAGNOSIS: Osteoporosis based on the lowest T-score value of -3.3 in the total femur applying World Health Organization criteria. Labs: Secondary workup negative Currently on [facility] since April 2024. Receiving injections and Silke The patient is a 74-year-old female presenting with lower back pain. This pain began a few months ago and coincides with the start of a medication regimen on [facility] . The pain is primarily in the lower back and occurs in the mornings, which dissipates as the day progresses. It is occasionally sharp and jabbing when engaged in certain activities like making the bed. Moreover, changes in the sleeping position or posture have shown to influence the pain's intensity. No trauma or injury has been reported over this period. Efforts to alleviate the discomfort, including heating pads and Tylenol, have been ineffective. Possible correlation with her osteoporosis treatment was considered, given that no prior history of similar pain existed before this medication regimen. An MRI has not been conducted, with previous consults suggesting muscular or posture-related causes. - Reports regular walks, duration and frequency unspecified. Walking is seen as potential help for the lower back pain, but no formal exercise regimen noted. [facility] Medical History Underweight Hyperkalemia Insomnia Osteoporosis Pure hypercholesterolemia Surgical History History of colonoscopy Family History (Updated 06/11/24 @ 10:08 by Gareth Boudreaux MD) Father Medical history unknown Mother Shy-Drager syndrome Son In good health Son In good health Social History Housing: House Alcohol intake: never Patient Tobacco Use Status: Never used Tobacco e-Cigarette/Vaping Use: Never Used Second Hand Smoke Exposure: No service: No Current occupational status: retired Cognitive needs: No Hearing needs: No Vision needs: Yes Assessment & Plan Assessment & Plan (1) Osteoporosis: Code(s): M81.0 - Age-related osteoporosis without current pathological fracture Category: Medical Qualifiers: Osteoporosis type: age-related Presence of current pathological fracture: without current pathological fracture Qualified Code(s): M81.0 - Age-related osteoporosis without current pathological fracture Plan: This is a 74-year-old white female with a history of osteoporosis previously treated with a bisphosphonate for 5 years with residual very low bone density. Secondary workup is negative. Patient is currently on Evenity since 03/2024 Plan is to continue with a full year of Evenity until l 03/2025 and then transition back to alendronate or Prolia 1. Lower Back Pain The pain could be related to Evenity injections, though this is atypical. Temporarily discontinuing Evenity s an option to monitor for changes in pain. If symptoms persist, advanced imaging could be necessary. 2. Osteoporosis The current treatment plan with Evenity injections should continue, with regular bone density tests scheduled to evaluate long-term benefits. The patient should be informed about maintaining this treatment course and report any adverse changes. I discussed with the patient the possibility that her lower back pain may be associated with sleeping posture rather than her current Aventi treatment, as the latter commonly presents with jaw pain instead. We discussed the option of temporarily stopping Aventi to assess any changes in pain, balanced against the risk of halting osteoporosis treatment. Additionally, I suggested alternative methods of evaluation, such as imaging scans, should the pain persist. We reinforced the importance of follow-up appointments to ensure continuous monitoring and effective management of her osteoporosis and associated symptoms. - Monitor back pain closely and note any changes, especially if related to medication timing. - Continue Evenity injections unless advised otherwise, and maintain the upcoming schedule. - Report immediately if symptoms worsen or become persistent. - Follow up with a primary care physician and schedule necessary imaging tests if the pain does not improve. - The patient had an opportunity to ask questions regarding treatment plan. The patient expressed understanding and agreement with the above treatment plan. Patient was informed and verbally consented to the use of an ambient scribe for clinic note documentation during this visit. Coding Level of Care Code Est Pt Level 3 (00612) Diagnoses Age-related osteoporosis without current pathological fracture M81.0 Osteoporosis type: age-related Presence of current pathological fracture: without current pathological fracture
== END 2024-07-22 10:43 | disposition home or self-care (01) ==
LOC: HO.ENCR 09:47
PROVIDERS: PCP Internal Medicine; Visit Provider Internal Medicine Endocrinology, Diabetes & Metabolism
DX: M81.0 Age-related osteoporosis without current pathological fracture (principal)
CPT/HCPCS: 99213

== ENCOUNTER → 2024-07-22 09:46 | Outpatient (BNVA) | payer MEDICARE, SELFPAY | PROVIDERS: PCP Internal Medicine; Visit Provider Internal Medicine Endocrinology, Diabetes & Metabolism | DX: M81.0 Age-related osteoporosis without current pathological fracture (principal) | CPT/HCPCS: 99212 ==

== ENCOUNTER 2024-12-05 07:32 | Outpatient (REF) | payer MEDICARE, SELFPAY ==
--- OUTSIDE RECORDS SUMMARY | 2024-12-05 07:35 | XMS_ITS | Patient Health Record ---
Author Organization [facility] Address [address] [place] [id number] Care Team Providers Care Wood Engraver Name Role Phone Gareth Boudreaux MD Primary Care Provider Daniel Finley Unavailable [phone] Reason For Referral No Information Medications Medication SIG (Take, Route, Frequency, Duration) Notes Start Date End Date Status Vitamin D 1000 UNIT 1 tablet Orally Once a day; Duration: 30 day(s) Active Zolpidem Tartrate 5 MG (Schedule IV Drug ) TAKE 1 TABLET BY MOUTH EVERY DAY AT BEDTIME NEEDED FOR INSOMNIA Oral; Duration: 30 Active Caltrate 600 1500 (600 Ca) MG as directed Orally Active Atorvastatin Calcium 10 MG TAKE 1 TABLET BY MOUTH EVERY DAY Oral; Duration: 90 Active Immunizations Vaccine Route Administration Date Status Comme nts Influenza Unknown 10/19/2017 Administered Social History Tobacco Use: Social History Observation Description Date Details (start date - stop date) Never Smoker NA - NA Tobacco Use/Smoking Question Answer Notes Patient is a nonsmoker Alcohol Screen Question Answer Notes Did you have a drink containing alcohol in the p ast year? No Points 0 Interpretation Negative Section Notes: Nonsmoker; no sig. alcohol Problems Problem Type SNOMED Code ICD Code Onset Dates Problem Status W/U Status Risk Notes Problem Screening for malignant neoplasm of colon (711610832) Encounter for screening for malignant neoplasm of colon (Z12.11) Active confirmed Problem Preprocedural examination ([id number]) Preprocedural examination (Z01.818) Active confirmed Plan Of Treatment Future Test Test Name Order Date COLONOSCOPY 08/28/2018 Insurance Providers Payer Name Payer Address Payer Phone Subscriber Number Group Number Insured Name Patient Relationship to Insured Coverage Start Date Coverage End Date MEDICARE OF [place] [address] [place] [address] [id number] CHASE VARGAS Self - patient is the insured [employer] ATT[employer] CLAIMS [address] [place] [address] [id number] VARGASCHASE Self - patient is the insured Medical (General) History Medical History History ICD Code Osteoporosis Sleep apnea-not using a CPAP Denies AK,DM,CVA,Lung disease,renal dise ase Negative screening colonoscopy in 04/2007 Hyperlipidemia Surgical History Surgery Date(Month/Year)
--- OUTSIDE RECORDS SUMMARY | 2024-12-05 07:35 | XMS_ITS | Patient Health Record ---
Author Organization [facility] Address [address] [place] [address] Care Team Providers Care Military Communications Specialist Name Role Phone Janusz CIFUENTES Langtry Primary Care Provider Giovanna Samaniego Unavailable [phone] Allergies No Known Allergies Reason For Referral No Information Medications Medication SIG (Take, Route, Frequency, Duration) Notes Start Date End Date Status Atorvastatin Calcium 10 MG 1 tablet Oral ly Once a day Active Evenity Active Ciclopirox 8 % 1 application thin f ilm topically to nails Externally Once a day; Duration: 30 days Active Zolpidem Tartrate 5 MG 1 tablet at bedti me as needed Orally Once a day Active Immunizations Vaccine Route Administration Date Status Comme nts Influenza Unknown 10/21/2023 Administered Social History Tobacco Use: Social History Observation Description Date Details (start date - stop date) Never Smoker NA - NA Tobacco use other than smoking: Question Answer Notes Are you an other tobacco user? No Tobacco Control (Standard) Question Answer Notes Tobacco use: Nonsmoker Additional Findings: Tobacco non-user Current no nsmoker AUDIT-C (Standard) Question Answer Notes Did you have a drink containing alcohol in the p ast year? No Points 0 Interpretation Negative Vital Signs Height 5ft 6in in 09/22/2024 Weight 111 lbs 09/22/2024 BMI 17.91 kg/m2 09/22/2024 Procedures Procedure Date Ordered Date Performed Result Body Sit e 91715-Roqprmpe Plate 09/22/2024 N/A Encounters Encounter Location Date Provider Diagnosis [facility] [address] [address] 09/22/2024 Giovanna Mckeon Pain in right toe(s) M79.674 ; Onychomycosis B35.1 ; Pain in left toe(s) M79.675 and Ingrown nail L60.0 [facility] [address] [address] 09/23/2024 Giovanna Mckeon Onychomycosis B35.1 Assessments Encounter Date Diagnosis (ICD Code) Assessment Notes Treatment Notes Treatment Clinical Notes Section Notes 09/22/2024 Pain in right toe(s) (ICD-10 - M79.674) 09/22/2024 Onychomycosis (ICD-10 - B35.1) 09/23/2024 Onychomycosis (ICD-10 - B35.1) 09/22/2024 Pain in left toe(s) (ICD-10 - M79.675) 09/22/2024 Ingrown nail (ICD-10 - L60.0) Plan Of Treatment Pending Test Test Name Order Date [id number] Plate 09/22/2024 Next Appt Details Provider Name:Giovanna chavira, 12/22/2024 10:00:00 AM, [address] [address], [place], [address], Insurance Providers Payer Name Payer Address Payer Phone Subscriber Number Group Number Insured Name Patient Relationship to Insured Coverage Start Date Coverage End Date Medicare National Govt Sv[employer] [address] [facility] [place] [address] [id number] Rachelle Montero Self - patient is the insured 7 [employer] [address] [place] [address] [id number] Rachelle Montero Self - patient is the insured Medical (General) History Medical History History ICD Code covid-19 Osteoporosis Measles Mumps Sleep apnea
[2024-12-05 08:18] LABS: MANUAL DIFF FLAG NO
[2024-12-05 09:24] LABS: Hematocrit 43.1 % (37.0-47.0); Hemoglobin 13.8 g/dl (12.0-16.0); Imm Gran Abs Auto 0.01 X10*3/uL (0.00-0.03); Imm Gran Pct Auto 0.1 % (0.0-0.4); Lymphocytes Absolute Auto 2.1 X10*3/uL (1.2-4.9); Mean Corpuscular HGB Conc 32.0 g/dl (31.0-35.0); Mean Corpuscular Hemoglobin 29.9 pg (27.0-33.0); Mean Corpuscular Volume 93.3 fL (80.0-98.0); NRBC Abs Auto 0.000 X10*3/uL (0.0-0.012); NRBC Pct Auto 0.0 /100WBC (0.0-0.2); Platelet Count 297 X10*3/uL (160-400); Red Blood Count 4.62 X10*6/uL (4.20-5.50); White Blood Count 6.9 X10*3/uL (4.8-10.8)
[2024-12-05 09:36] LABS: Appearance Urine Clear; Glucose Urine UA Negative (Negative); PH 8.5 (5.0-9.0); Specific Gravity - Urine 1.015 (1.005-1.025); UMIC TRIGGER UACC YES
[2024-12-05 09:52] LABS: UACC Culture Trigger YES
[2024-12-05 10:29] LABS: Alanine Aminotransferase 15 U/L (0-31); Albumin Level 4.0 g/dL (3.5-5.0); Anion Gap 11 (12-20); Aspartate Amino Transferase 29 U/L (5-31); Blood Urea Nitrogen 12 mg/dL (9-16); Calcium 9.0 mg/dL (8.4-10.2); Carbon Dioxide 28 mmol/L (22-29); Chloride 107 mmol/L (96-108); Cholesterol 155 mg/dL (<200); Estimated Glomerular Filt Rate > 60; HDL Cholesterol 63 mg/dL (>40); Potassium 4.6 mmol/L (3.3-5.1); Sodium 141 mmol/L (135-145); Total Protein 7.0 g/dL (6.5-8.0); Triglycerides 53 mg/dL (<150)
[2024-12-05 10:41] LABS: Alkaline Phosphatase 83 U/L (39-117)
== END 2024-12-05 07:33 | disposition home or self-care (01) ==
LOC: HO.LAB 07:32
PROVIDERS: PCP Internal Medicine; Visit Provider Internal Medicine
DX: E78.00 Pure hypercholesterolemia, unspecified (principal); E55.9 Vitamin D deficiency, unspecified; D64.9 Anemia, unspecified
CPT/HCPCS: 36415; 80053; 80061; 81001; 82306; 84443; 85025; 87086

== ENCOUNTER 2024-12-11 09:35 | Outpatient (AMB) | payer MEDICARE, SELFPAY ==
[2024-12-11 09:53] VITALS: BP 110/70; PULSE 65; O2SAT 97; BMI 17.9
--- NOTE | 2024-12-11 09:53 | MHC.PC.OV ---
Vital Signs 12/11/24 09:53 Height 5 ft 6 in Weight 111 lb BMI 17.9 BP 110/70 Blood Pressure Location Lt brachial Position Sitting Pulse 65 Pulse Source Pulse Oximeter Pulse Oximetry (%) 97 Oxygen Delivery Method Room Air Intake Visit Reasons: hyperlipidemia, insomnia Painting Technician Required: No Accompanied by: Self / Same As Patient Allergies No Known Allergies (No Known Allergies*) Allergy (Verified 12/11/24 10:22) Medication List - Last Reconciled 12/11/24 by Gareth Boudreaux MD atorvastatin 10 mg PO DAILY 90 days romosozumab-aqqg (Evenity) 210 mg (2.34 mL) subcut .qmonth zolpidem 5 mg PO BEDTIME PRN 90 days Tobacco use date assessed: 12/11/24 Fall risk assessment: No Falls in past year Last assessed Fall Risk: 12/11/24 Dental Screening Dental Screen Date: 12/11/24 Did you have a dental visit in the last 12 months?: Yes Did you have a dental problem in the last 6 months where you did not have access to dental care?: No Was dental information given to patient?: Patient has dentist HPI hyperlipidemia, insomnia HPI Details Patient comes in today for her follow up visit States that she feels okay except for some recurrent pain/discomfort over both of her forearms, mostly when she is trying to turn and twist something with both hands, like opening the lid of a jar or a can Recalls that these symptoms first started when she was trying to twist open the lid of a jar and she had a hard time doing it and when she finally did, was experiencing (+) pain over both of her forearms (mostly over the radial side) as well as in her wrists States that her wrist pains have mostly subsided but the pain in her forearms are still recurring usually when she is using both hands to open something She denies any headaches or dizziness Denies any chest pains, no SOB No nausea/vomiting, no abdominal pain No change in bowel habits noted Needs her Zolpidem Rx refilled again She had her follow up labs done last week - to discuss her results [facility] Medical History Underweight Hyperkalemia Insomnia Osteoporosis Pure hypercholesterolemia Surgical History History of colonoscopy Family History Father Medical history unknown Mother Shy-Drager syndrome Son In good health Son In good health Social History Housing: House Alcohol intake: never Patient Tobacco Use Status: Never used Tobacco e-Cigarette/Vaping Use: Never Used Second Hand Smoke Exposure: No service: No Current occupational status: retired Cognitive needs: No Hearing needs: No Vision needs: Yes Questionnaire Thrive Questionnaire Date Thrive assessed: 06/11/24 I am a: Patient What is your living situation today?: I have a steady place to live Within the past 12 months, did the food you bought not last and you didn't have the money to get more?: Never true Within the past 12 months, did you worry whether your food would run out before you got money to buy more?: Never true Do you have trouble paying for medicines?: No Do you have trouble getting transportation to medical appointments?: No Do you have trouble paying your heating and electricity bill?: No Do you have trouble taking care of your child, family member or friend?: No Do you have trouble with day-to-day activities such as bathing, preparing meals, shopping, managing finances, etc.?: No Are you currently unemployed and looking for a job?: No Are you interested in more education?: No Please select the resources that you would like help with: None Currently or been in a relationship where the following occur: No concerns reported THRIVE Score: 0 AUDIT C Alcohol Use Questionnaire (AUDIT-C) 1. How often do you have a drink containing alcohol?: Never 3. How often do you have six or more drinks on one occasion?: Never Total Score: 0 Score Reviewed/Action Taken: Yes ANTON-7 AMB Questionnaire ANTON-7 Date ANTON - 7 assessed: 06/11/24 Feeling nervous, anxious, or on edge: 0 = Not at all Not being able to stop or control worryin = Not at all Worrying too much about different things: 0 = Not at all Trouble relaxin = Not at all Being so restless that it is hard to sit still: 0 = Not at all Becoming easily annoyed or irritable: 0 = Not at all Feeling afraid as if something awful might happen: 0 = Not at all Total ANTON-7 score (0-4 normal; 5-9 mild; 10-14 moderate; 15-21 severe): 0 Source: Developed by Drs. Daniel Botello, Shayy Foley, Wade Adorno and colleagues, with an educational delvin from [employer]. Review of Systems Const Denies chills, Denies fatigue, Denies fever(s) and Denies headache(s) ENT Denies dysphagia, Denies dizziness, Denies otalgia, Denies headache(s), Denies neck pain, Denies odynophagia and Denies sore throat Card Denies chest pain, Denies palpitations and Denies dyspnea Resp Denies chest congestion, Denies cough and Denies dyspnea GI Denies abdominal pain, Denies constipation, Denies dysphagia, Denies heartburn, Denies diarrhea, Denies nausea, Denies odynophagia and Denies vomiting Denies difficulty voiding, Denies nocturia, Denies dysuria and Denies urinary urgency Musc Details: (+) recurrent pain in both forearms - see HPI for details Denies back pain, Denies arthralgias and Denies neck pain Skin/Breast Denies rash Neuro Denies dizziness and Denies headache(s) Psych Denies anxiety and Denies depression Endo Denies fatigue and Denies palpitations Physical exam (Primary Care) Vital Signs: Last Vital Signs Pulse 65 12/11/24 09:53 BP 110/70 12/11/24 09:53 Pulse Ox 97 12/11/24 09:53 Oxygen Delivery Method Room Air 12/11/24 09:53 BMI result Body Mass Index 17.9 Tobacco/Smoking Status: Tobacco use Status Tobacco use date assessed 12/11/24 12/11/24 10:02 Patient Tobacco Use Status Never used Tobacco 12/11/24 10:02 e-Cigarette/Vaping Use Never Used 12/11/24 10:02 Thrive Assessment: Date of Thrive Assessment Date Thrive assessed 06/11/24 12/11/24 10:02 Currently or been in a relationship where the following occur: No concerns reported Const General: no acute distress and alert HENMT Throat: Yes posterior oropharynx normal and Yes tonsils normal (no TP congestion) Neck Neck: Yes supple and No lymphadenopathy Thyroid: Thyroid normal Resp Auscultation: clear to auscultation bilaterally, no rales and no wheezes Cardio Rate: regular rate Rhythm: regular rhythm Heart sounds: no murmurs GI Palpation (GI): Soft to palpation and nontender Auscultation: normal bowel sounds General: Yes no CVA tenderness Back/Spine/Pelvis Back: no CVA tenderness Thoracic/Lumbar Spine: No lumbar spinal tenderness Skin Rashes: no rashes Extrem Other: No reproducible tenderness or abnormality noted on exam of both forearms and wrists General: Yes no clubbing, cyanosis or edema Results Reviewed Results Reviewed: Laboratory Tests 12/05/24 08:15 WBC 6.9 Hgb 13.8 Hct 43.1 Plt Count 297 Sodium 141 Potassium 4.6 Creatinine 0.76 Estimated GFR > 60 Fasting Glucose 84 Calcium 9.0 AST 29 ALT 15 Triglycerides 53 Cholesterol 155 LDL Cholesterol, Calc 82 HDL Cholesterol 63 25-OH Vitamin D Total 50.4 TSH 2.48 Ur Specific [place] 1.015 Urine Protein Negative Urine Glucose (UA) Negative Urine Blood Negative Urine Nitrite Negative Ur Leukocyte Esterase Small (1+) H Coding Level of Care Code Est Pt Level 4 (58616) Diagnoses Pure hypercholesterolemia E78.00 Age-related osteoporosis without current pathological fracture M81.0 Osteoporosis type: age-related Presence of current pathological fracture: without current pathological fracture Muscle strain of forearm, unspecified laterality, sequela S56.919S Encounter type: sequela Laterality: unspecified laterality Onychomycosis of toenail B35.1 Insomnia, unspecified type G47.00 Insomnia type: unspecified Assessment & Plan Assessment & Plan (1) Pure hypercholesterolemia: Code(s): E78.00 - Pure hypercholesterolemia, unspecified Category: Medical Plan: Results of her labs done last week reviewed and discussed with patient Reinforced low cholesterol diet Continue Atorvastatin 10 mg QD Will recheck her labs and fasting lipids in 6 months for follow up (2) Osteoporosis: Code(s): M81.0 - Age-related osteoporosis without current pathological fracture Category: Medical Qualifiers: Osteoporosis type: age-related Presence of current pathological fracture: without current pathological fracture Qualified Code(s): M81.0 - Age-related osteoporosis without current pathological fracture Plan: Her most recent BMD done on 12/26/2022 revealed osteoporosis based on the lowest T-score value of -3.3 in the total femur - there has been no significant change from her BMD a few years ago on 11/23/2020 Patient has been on Alendronate since mid-2018 and she completed treatment x 5 years last year (2023) She was previously advised on switching over to Prolia but decided not to switch at the time as she did not want to have to deal with another injection We referred her then to endocrinology for further recommendations regarding Tx of her condition and she was eventually started on Evenity 210 mg SQ once a month by Dr. Velásquez couple of months ago Current plan is to continue Evenity for up to a year and will then switch her back to either Prolia or Alendronate, sometime in March 2025 She will continue following up with endocrinology as scheduled for treatment and management of her osteoporosis Patient is again reminded to continue with regular exercises and physical activity but reinforced fall precautions as her fracture risk is high due to her osteoporosis (3) Muscle strain of forearm: Code(s): S56.919A - Strain of unspecified muscles, fascia and tendons at forearm level, unspecified arm, initial encounter Category: Medical Qualifiers: Encounter type: sequela Laterality: unspecified laterality Qualified Code(s): S56.919S - Strain of unspecified muscles, fascia and tendons at forearm level, unspecified arm, sequela Plan: Patient is advised that based on her symptoms, she most likely strained the muscles on her forearms and that she does not appear to have completely recovered from her injury yet and she seems to be reaggravating them every time she uses her hands to open a jar or can Have advised her to refrain from these activities as much as possible for the next few months so as not to reaggravate her injury (4) Onychomycosis of toenail: Comment: left big toenail Code(s): B35.1 - Tinea unguium Category: Medical Plan: Follow up with Podiatry as scheduled (5) Insomnia: Code(s): G47.00 - Insomnia, unspecified Category: Medical Qualifiers: Insomnia type: unspecified Qualified Code(s): G47.00 - Insomnia, unspecified Plan: Sleep hygiene reinforced Continue Zolpidem 10 mg Q HS PRN - Rx refilled Plan Follow up in 6 months Orders: Orders Lipid Panel 6 Months E78.00 - Pure hypercholesterolemia, unspecified TSH reflex Free T4 6 Months E78.00 - Pure hypercholesterolemia, unspecified Vitamin D 25-OH Total 6 Months E55.9 - Vitamin D deficiency, unspecified Comprehensive [place]. Panel Fast 6 Months E78.00 - Pure hypercholesterolemia, unspecified Complete Blood Count Auto Diff 6 Months D64.9 - Anemia, unspecified UA CC w/rflx Micro + Cult 6 Months R30.0 - Dysuria Vitamin B12 and Folate 6 Months E53.8 - Deficiency of other specified B group vitamins Medications: Refilled zolpidem 5 mg PO BEDTIME PRN 90 tabs 1RF insomnia 90 days G47.00 - Insomnia, unspecified
--- OUTSIDE RECORDS SUMMARY | 2024-12-11 10:35 | XMS_ITS | Patient Health Record ---
Author Organization [facility] Address [address] [place] [address] Care Team Providers Care Pipe Line Walker Name Role Phone Gareth Boudreaux MD Primary Care Provider Daniel Finley Unavailable [phone] Reason For Referral No Information Medications Medication [...] Problem Status W/U Status Risk Notes Problem Information temporarily unavailable Encounter for screening for malignant neoplasm of colon (Z12.11) Active confirmed Problem Information temporarily unavailable Preprocedural examination (Z01.818) Active confirmed Plan Of Treatment Future Test Test Name Order Date COLONOSCOPY 08/28/2018 Insurance Providers Payer Name Payer Address Payer Phone Subscriber Number Group Number Insured Name Patient Relationship to Insured Coverage Start Date Coverage End Date MEDICARE OF [place] [address] [place] [id number] [phone] [id number] ALICIA CHASE Self - patient is the insured [employer] CLAIM[employer] [address] [place] [address] [phone] [id number] ALICIA CHASE Self - patient is the insured Medical (General) History Medical History History ICD Code Osteoporosis Sleep apnea-not using a CPAP Denies PR,DM,CVA,Lung disease,renal dise ase Negative screening colonoscopy in 04/2007 Hyperlipidemia Surgical History Surgery Date(Month/Year)
--- OUTSIDE RECORDS SUMMARY | 2024-12-11 10:35 | XMS_ITS | Patient Health Record ---
Author Organization [facility] Address [address] [place] [address] Care Team Providers Care Audiovisual Lead Technician Name Role Phone Janusz CIFUENTES Vaughn Primary Care Provider Giovanna Samaniego Unavailable [phone] Allergies No Known Allergies Reason For Referral [...] Ordered Date Performed Result Body Sit e [id number]-Caynlwqs Plate 09/22/2024 N/A Encounters Encounter Location Date Provider Diagnosis [facility] [address] [address] 09/22/2024 Giovanna Mckeon Pain in right toe(s) M79.674 ; Onychomycosis B35.1 ; Pain in left toe(s) M79.675 and Ingrown nail L60.0 [facility] [address] [address] 09/23/2024 Giovanna Mckeon Onychomycosis B35.1 Assessments Encounter Date Diagnosis (ICD Code) Assessment Notes Treatment Notes Treatment Clinical Notes Section Notes 09/22/2024 Pain in right toe(s) (ICD-10 - M79.674) 09/22/2024 Onychomycosis (ICD-10 - B35.1) 09/23/2024 Onychomycosis (ICD-10 - B35.1) 09/22/2024 Pain in left toe(s) (ICD-10 - M79.675) 09/22/2024 Ingrown nail (ICD-10 - L60.0) Plan Of Treatment Pending Test Test Name Order Date [id number] Plate 09/22/2024 Next Appt Details Provider Name:Giovanna chavira, 12/22/2024 10:00:00 AM, [address] [address], [place], [address], Insurance Providers Payer Name Payer Address Payer Phone Subscriber Number Group Number Insured Name Patient Relationship to Insured Coverage Start Date Coverage End Date Medicare National Govt Svcs Inc [address] [place] [address] [id number] Rachelle Montero Self - patient is the insured 7 [employer] [address] [place] [address] [phone] [id number] Rachelle Montero Self - patient is the insured Medical (General) History Medical History History ICD Code covid-19 Osteoporosis Measles Mumps Sleep apnea
== END 2024-12-11 10:51 | disposition home or self-care (01) ==
LOC: HO.HMCH 09:36
PROVIDERS: PCP Internal Medicine; Visit Provider Internal Medicine
DX: E78.00 Pure hypercholesterolemia, unspecified (principal); M81.0 Age-related osteoporosis without current pathological fracture; S56.91 Strain of unspecified muscles, fascia and tendons at forearm level; B35.1 Tinea unguium; G47.00 Insomnia, unspecified

== ENCOUNTER → 2024-12-11 09:35 | Outpatient (BNVA) | payer MEDICARE, SELFPAY | PROVIDERS: PCP Internal Medicine; Visit Provider Internal Medicine | DX: E78.00 Pure hypercholesterolemia, unspecified (principal); M81.0 Age-related osteoporosis without current pathological fracture; S56.91 Strain of unspecified muscles, fascia and tendons at forearm level; B35.1 Tinea unguium; G47.00 Insomnia, unspecified | CPT/HCPCS: 99212 ==

== ENCOUNTER 2025-01-21 08:58 | Outpatient (AMB) | payer MEDICARE, SELFPAY ==
--- NOTE | 2025-01-21 09:02 | A.OFFVIS_ITS ---
Vital Signs 01/21/25 09:05 Height 5 ft 3.46 in Weight 110 lb 3.698 oz BMI 19.2 BP 98/62 Blood Pressure Location Lt brachial Position Sitting Pulse 64 Pulse Source Pulse Oximeter Pulse Oximetry (%) 97 Oxygen Delivery Method Room Air Intake Visit Reasons: f/u osteoporosis Intake Note: Patient present today for Osteoporosis follow up. 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 First diagnosed in 10 yrs ago .Never saw specialist before Received treatment in the past with alendronate , for 5-6 yrs of therapy stopped this yr . Took 5 yrs of alendronate yrs ago Tolerated treatment well without complication. No history of pathologic fracture or ONJ. Has several servings of dietary calcium per day in the form of cheese, broccoli . Takes Calcium supplement 600 mg daily in divided doses. Takes ? IU of Vitamin D daily every other day . Denies ever using PPI, anticoagulant, antiepileptic or glucocorticoid medication. Not Does weight bearing exercise . 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 UTD on dental cleanings and sees dentist every 6 months. No planned upcoming dental work or extractions. DXA dated 12/26/2022 :OMPARISON: Previous BD dated 11/23/2020 and baseline BD dated 04/22/2015. TECHNIQUE: Using a [employer] DXA System (software version: 13.1) manufactured by [employer], dual-energy x-ray absorptiometry was performed of the lumbar spine and left hip. The images are of good technical quality. Summary results are attached. FINDINGS: LEFT FEMUR, NECK: Current: BMD 0.632 g/cm2, Z-score -0.9, T-score -2.9, osteoporosis. Prior: BMD 0.629 g/cm2. Baseline: BMD 0.682 g/cm2. LEFT FEMUR, TOTAL: Current: BMD 0.592 g/cm2, Z-score -1.5, T-score -3.3, osteoporosis, 4.1% decrease from previous, 12.3% decrease from baseline (<5% change is not significant). Prior: BMD 0.617 g/cm2. Baseline: BMD 0.675 g/cm2. AP SPINE L1-L4: Current: BMD 0.799 g/cm2, Z-score -1.0, T-score -3.2, osteoporosis, 1.9% increase from previous, 0.1% increase from baseline (<5% change is not significant). Prior: BMD 0.784 g/cm2. Baseline: BMD 0.798 g/cm2. IDENTIFIED RISK FACTORS: Menopause, height loss, osteoporosis. HISTORY OF FRACTURE: None listed. MEDICATIONS: Calcium supplements or multivitamin, vitamin D, bisphosphonate. MM/XR DEXA axial skeleton IMPRESSION: 1. DIAGNOSIS: Osteoporosis based on the lowest T-score value of -3.3 in the total femur applying World Health Organization criteria. Labs: Secondary workup negative Currently on Evenity since April 2024. Receiving injections thru [facility] . Was having some issues of back pain possibly associated with Evenity The patient is a 75-year-old female presenting for a follow-up visit for osteoporosis management. She is currently being treated with Evenity injections, which she started in April of the previous year, and is due for her ninth injection soon. She reports tolerating the injections well, though she previously had back pain, which has since resolved and she believes was related to her sleeping position. She has not had any new fractures since her last visit. Her medication history includes prior use of alendronate, which she tolerated well and was stopped before initiating Evenity. She is compliant with taking calcium and vitamin D supplements. [facility] Medical History Underweight Hyperkalemia Insomnia Osteoporosis Pure hypercholesterolemia Surgical History History of colonoscopy Family History Father Medical history unknown Mother Shy-Drager syndrome Son In good health Son In good health Social History Housing: House Alcohol intake: never Patient Tobacco Use Status: Never used Tobacco e-Cigarette/Vaping Use: Never Used Second Hand Smoke Exposure: No service: No Current occupational status: retired Cognitive needs: No Hearing needs: No Vision needs: Yes Physical Exam Vital Signs: Last Vital Signs Pulse 64 01/21/25 09:05 BP 98/62 01/21/25 09:05 Pulse Ox 97 01/21/25 09:05 Oxygen Delivery Method Room Air 01/21/25 09:05 BMI result Body Mass Index 19.2 Assessment & Plan Assessment & Plan (1) Osteoporosis: Code(s): M81.0 - Age-related osteoporosis without current pathological fracture Category: Medical Qualifiers: Osteoporosis type: age-related Presence of current pathological fracture: without current pathological fracture Qualified Code(s): M81.0 - Age- related osteoporosis without current pathological fracture Plan: This is a 74-year-old white female with a history of osteoporosis previously treated with a bisphosphonate for 5 years with residual very low bone density. Secondary workup is negative. Patient is currently on Evenity since 03/2024 Plan is to continue with a full year of Evenity until l 03/2025 . We will check DEXA within the next month. Depending on DEXA, could transition to either alendronate or Prolia in 04/2025 1. Osteoporosis The patient is doing well on Evenity treatment, nearing the completion of her 12-month course with no new interval fractures. The next step is to transition to an antiresorptive agent to maintain bone density gains. A new bone density scan will be ordered to guide this decision. If her bone density remains in the osteoporotic range, she will be transitioned to Prolia, administered as an injection every six months. If her bone density has improved to the osteopenic range, she will restart alendronate, which she has tolerated in the past, for maintenance therapy. She will continue her calcium and vitamin D supplements. A follow-up visit is scheduled in approximately 10 weeks to review the bone density results and finalize the transition plan before her last Evenity dose. The patient had an opportunity to ask questions regarding treatment plan. The patient expressed understanding and agreement with the above treatment plan. Patient was informed and verbally consented to the use of an ambient scribe for clinic note documentation during this visit. Orders: Orders XR DEXA axial skeleton Today M81.0 - Age-related osteoporosis without current pathological fracture Coding Level of Care Code Est Pt Level 3 (80398) Diagnoses Age-related osteoporosis without current pathological fracture M81.0 Osteoporosis type: age-related Presence of current pathological fracture: without current pathological fracture
[2025-01-21 09:05] VITALS: BP 98/62; PULSE 64; O2SAT 97; BMI 19.2
== END 2025-01-21 09:24 | disposition home or self-care (01) ==
LOC: HO.ENCR 08:59
PROVIDERS: PCP Internal Medicine; Visit Provider Internal Medicine Endocrinology, Diabetes & Metabolism
DX: M81.0 Age-related osteoporosis without current pathological fracture (principal)
CPT/HCPCS: 99213

== ENCOUNTER → 2025-01-21 08:58 | Outpatient (BNVA) | payer MEDICARE, SELFPAY | PROVIDERS: PCP Internal Medicine; Visit Provider Internal Medicine Endocrinology, Diabetes & Metabolism | DX: M81.0 Age-related osteoporosis without current pathological fracture (principal) | CPT/HCPCS: 99212 ==